=== PATIENT | male | born 1955 | race Caucasian/White ===

== ENCOUNTER 2023-04-22 07:28 | Outpatient (CLI) | payer MEDICARE, SELFPAY | END 2023-04-22 07:29 | disposition home or self-care (01) | LOC: NFLDREF 11:33 | PROVIDERS: PCP Family Medicine; Referring Provider Family Medicine; Visit Provider Family Medicine | DX: Z00.00 Encounter for general adult medical examination without abnormal findings (principal); R73.01 Impaired fasting glucose; Z12.5 Encounter for screening for malignant neoplasm of prostate; Z13.6 Encounter for screening for cardiovascular disorders | CPT/HCPCS: 80053; 80061; 83036; 84153 ==

== ENCOUNTER 2023-05-08 07:00 | Outpatient (CLI) | payer MEDICARE, SELFPAY ==
--- NOTE | 2023-05-08 07:15 | CRLHL7_ITS ---
For Patients: As a result of the Cures Act, medical imaging exams and procedure reports are released immediately into your electronic medical record. You may view this report before your referring provider. If you have questions, please contact your health care provider. Examination: US abdominal aorta Indication: Abdominal aortic aneurysm screening. Technique: Nogueira scale and color Doppler images of the aorta and common iliac arteries are obtained. Comparison: None Findings: Proximal aorta: 2.1 x 2.3 cm Mid aorta: 2.5 x 2.3 cm Distal aorta: 1.6 x 1.6 cm Right common iliac artery: 1.0 x 1.6 cm Left common iliac artery: 1.1 x 1.5 cm Impression: No abdominal aortic aneurysm. Dictated by Werner Pettit MD @ 05/08/2023 9:25:34 AM (Electronically Signed)
== END 2023-05-08 07:01 | disposition home or self-care (01) ==
PROVIDERS: PCP Family Medicine; Visit Provider Family Medicine
DX: Z13.6 Encounter for screening for cardiovascular disorders (principal)
CPT/HCPCS: 76706

== ENCOUNTER 2023-05-22 09:17 | Outpatient (RCR) | payer MEDICARE, SELFPAY ==
--- NOTE | 2023-05-22 11:13 | PT.OPEX ---
PT [place] Outpatient Eval PT [facility] Outpatient Eval Start: 05/22/23 07:34 Freq: Status: Active Protocol: Document 05/22/23 07:35 SUSAN (Rec: 05/22/23 11:11 KLV [id number]) E-signed By Zeina Mora PT Physical Therapy Outpatient Evaluation Insurance Information Recert Due Date 08/16/23 Insurance Name Medicare B Insurance Information/Comments Blue Medicare Medical Diagnosis Right knee pain Treating Diagnosis Right knee pain, limited knee ROM, impaired functional mobility (ie squatting) Referring MD James Subjective Subjective Prashanth reports to PT with primary complaint of right knee pain with gradual and insidious onset over the years . No known injury. Pain is relatively mild but mostly notices the pain when getting up and down from the ground to play with his grandchildren. Would like to prevent pain from getting worse. Pain is localized to medial aspect of knee without radiculopathy. He has tried some heat but no ice. 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 PMH: arthritis Pain Comments 11/02 worst Date of Last Physician Visit 04/24/23 Current Work Status Retired Objective Other/Pertinent Objective LE ROM (R/L): -Hip ER: 35/40 -Hip IR: 8/5 -Hip Abd: WNL -Knee Flx: 125 B however end range medial knee pain R>L -Knee Ext: WNL -Hamstring 90/90: 35 deg short of full extension DL squatting: medial R knee pain past 60 deg LE Strength (R/L): -Knee Ext: R: 4+/5 medial knee pain, L: 5/5 -Knee Flex: R: 5/5, L: 5/5 -Hip Abd: R: 5/5, L: 5/5 -Hip Add: R: 5/5, L: 5/5 -Hip Ext: R: 5/5, L: 5/5 -Hip Flx: R: 5/5, L: 5/5 Gait: WNL SL balance: good, WNL Carmencita: + medial knee pain R Thessaly: mild positive R All ligament testing: - Functional Test Performed & Score LEFS: 54/80 Assessment Assessment/Impression Patient is a 68 year old male presenting to physical therapy for evaluation and treatment of right knee pain. Patient presents with Right knee pain, limited knee ROM (end range flexion, HS and hip ER), impaired functional mobility ( ie squatting) consistent with pes anserine tendonitis with possible differential diagnosis of mild meniscus tear. These impairments are limiting the patients ability to squat, bend, kneel down on ground to play with grandkids. Patient appears motivated to participate in PT and presents with good prognosis to improve mobility, strength, proprioception and return to functional activities with skilled physical therapy intervention. Primary Functional Limitations squat, bend, kneel down on ground to play with grandkids Plan of Care Rehabilitation Potential Good Physical Therapy Goals In 4 weeks (06/19/23) Pt will demonstrate WNL knee and hip ROM with 0/10 medial knee pain In 10 weeks (07/31/23) Patient will squat with pain levels < 1/10 displaying good control in order to participate in recreational activities including playing with grandkids Pt will exhibit 9 pt improvement in LEFS Outcome measure to demonstrate functional improvement and progress towards goals. Pt will exhibit 5/5 LE strength in order to return to all functional activities Treatment Plan/Direct Interventions Gait Training,Ice/Cold/ Vasopneumatic,Joint Mobilization,Manual Therapy, Neuromuscular Re-ed,Self-Care/ Home Management,Therapeutic Activities,Therapeutic Exercises Frequency/Duration 1x/wk for 4 weeks with additional 4 sessions prn based on progress Patient Will Be Discharged From Therapy Completion of LTG(s), Independent w/HEP, Independently Progressing Evaluation Billing Untimed Code Treatment Minutes 18 Complexity Low Certification Information Initial Certification Date 05/22/23 Ending Certification Date 08/16/23 Provider Signature Shows Agreement With POC & Medical Necessity Physician Signature & Date Requested Please Sign/Date Here Physician Comment/Change : Physician NPI Number #
== END 2023-08-23 15:56 | disposition home or self-care (01) ==
PROVIDERS: PCP Family Medicine; Visit Provider Family Medicine
DX: M25.561 Pain in right knee (principal); Z74.09 Other reduced mobility; Z51.89 Encounter for other specified aftercare
CPT/HCPCS: 97110; 97161

== ENCOUNTER 2023-11-15 09:08 | Outpatient (CLI) | payer MEDICARE, SELFPAY | END 2023-11-15 09:09 | disposition home or self-care (01) | LOC: NFLDREF 09:09 | PROVIDERS: PCP Family Medicine; Visit Provider Family Medicine | DX: K52.9 Noninfective gastroenteritis and colitis, unspecified (principal) | CPT/HCPCS: 86258; 86364 ==

== ENCOUNTER 2023-11-19 09:55 | Outpatient (CLI) | payer MEDICARE, SELFPAY | END 2023-11-19 09:56 | disposition home or self-care (01) | LOC: NFLDREF 12-04 16:25 | PROVIDERS: PCP Family Medicine; Referring Provider Family Medicine; Visit Provider Family Medicine | DX: K52.9 Noninfective gastroenteritis and colitis, unspecified (principal) | CPT/HCPCS: 87177; 87209 ==

== ENCOUNTER 2024-04-20 19:40 | Emergency (ER) | payer MEDICARE, SELFPAY ==
[2024-04-20 19:50] VITALS: BP 124/78; PULSE 90; RESP 16; TEMP 37; O2SAT 98; BMI 29.2
[2024-04-20] MEDS: LACTATED RINGERS 1000 ML 1,000 ML IV (20:23)
[2024-04-20] MEDS: diphenhydrAMINE 50 MG/ML inj 25 MG IVP (20:25)
--- OUTSIDE RECORDS SUMMARY | 2024-04-20 20:26 | XMS_ITS | Continuity of Care Document ---
Author Organization [facility] Address [address] [address] [place] [address] Phone Care Team Providers Care Bakelite Molder Name Role Phone Ezra ROSARIO, Humberto Unavailable Unavailable Allergies, Adverse Reactions, Alerts Substance Reaction Status Criticality PENICILLIN Rash Active No Information Sulfa (Sulfonamide Antibiotics) Rash Active No Information KETOROLAC TROMETHAMINE Rash Active No In formation gatifloxacin Rash Active No Information DEXTROSE 5 % IN WATER Rash Active No Inf ormation sulfabenzamide Rash Active No Informatio n Penicillins Rash Active No Information Medications Medication Instructions Dosage Effective Dates (start - stop) Status Comments Zyrtec 10 mg capsule apply 1 Tablet by Oral route every day as needed 1 Tablet - Active simethicone 125 mg capsule take 1 by Oral route every day when needed as needed 1 - Active cetirizine 10 mg tablet take 1 tablet by oral route every day as needed 10 MG - No Longer Active pantoprazole 20 mg tablet,delayed release take 1 tablet daily on empty stomach in the morning, 30-60 minutes before your first meal. You should eat something 30-60 minutes after the medicine. - No Longer Active Procedures Procedure Date Offic/outpt E&m Estab Mod-hi 2 24 Offic/outpt E&m Estab Mod-hi 2 Breath Test Fructose Interpretation Breath Test Interpretation Breath Test Established Level 4 Colonoscopy Flex; W/remov Les- 21 Level Iv-surg Path Gross/micro 21 Colonoscopy Flex; W/remov Les- 16 Level Iv-surg Path Gross/micro 16 Colonoscopy Flex; W/remov Advance Directives Directive Yes / No Effective Date File Name No Information Encounters Encounter Description Practice Location Reason(s) For Visit Diagnoses Date Provider Providers Copied on Encounter Offic/outpt E&m Estab Mod-hi 2 [facility], [address] [address], [place], [id number], [place] tel:[phone] [facility] GI Symptoms or Concerns (chief complaint) Abdominal distension (gaseous)Belching 4 Ezra Paul. [address] [facility], [facility] [place], [id number] , [place]. [phone] Referring Provider: Referral Self, USE FOR SELF REFERRALS. Offic/outpt E&m [facility] Mod-hi 2 [facility], [address] [address], [place], [id number], [place] tel:[phone] [facility] GI Symptoms or Concerns (chief complaint) Chronic diarrheaFlatulenceB elchingFunctional dyspepsia 4 Ezra Harkinsi. [address] [facility], [facility] [place], [id number] , [place]. [phone] Referring Provider: Referral Self, USE FOR SELF REFERRALS. [facility], [address] [address], [place], [id number], [place] tel:[phone] [facility] Abdominal distension (gaseous) 4 Usha Brooks. [address] [facility], [facility] [place], [id number] , [place]. tel:[phone] Referring Provider: Violet James MD, [address] [place], [address]. tel:[phone] [facility], [address] [address], [place], [id number], [place] tel:[phone] [facility] Abdominal distension (gaseous) 4 Mendel Thornton. [address] [facility], [place], [place], [id number] , [place]. tel:[phone] Referring Provider: Violet James MD, [address] [place], [address]. tel:[phone] [facility], [address] [address], [place], [id number], [place] tel:[phone] [facility] Abdominal distension (gaseous) 4 Mendel Thornton. [address] [facility], [facility] [address], [place], [place], [id number] , [place]. tel:[phone] Referring Provider: Violet James MD, [address] [place], [address]. tel:[phone] Established Level 4 [facility], [address] [address], [place], [address], [place] tel:[phone] [facility] GI Symptoms or Concerns (chief complaint) Chronic diarrheaAbdominal bloatingBelchingFla [facility] 4 Ezra Paul. [address] [facility], [place], [place], [id number] , [place]. tel:[phone] Referring Provider: Referral Self, USE FOR SELF REFERRALS. [facility], [address] [address], [place], [id number], [place] tel:[phone] [facility] No Information 4 Shahram Jones. [address] [facility], [place], [place], [id number] , [place]. tel:[phone] [facility], [address] [address], [place], [id number], [place] tel:[phone] [facility] History of colon polypsPolyp of sigmoid colon, unspecified typeColon, diverticulosisHemor rhoids, unspecified hemorrhoid typeEncounter for screening for malignant neoplasm of colonEncounter for screening for malignant neoplasm of colonDvrtclos of lg int w/o perforation or abscess w/o bleedingPolyp of colonPersonal history of colonic polyps 1 Judy Cardoso. [address] [facility], [facility] [address], [place], [place], [id number] , [place]. tel:[phone] Referring Provider: Referral Self, USE FOR SELF REFERRALS. [facility], [address] [address], [place], [place], [id number], [place] tel:[phone] [facility] Colon polypEncounter for screening for malignant neoplasm of colonBenign neoplasm of ascending colon 6 Lidia Gutiérrez. [address] [facility], [facility] [address], [place], [id number] , [place]. [phone] Referring Provider: Referral Self, USE FOR SELF REFERRALS. [facility], [address] [address], [place], [place], [id number], [place] tel:[phone] [facility] Diarrhea 200 6 Michelle Pratt. [address] [facility], [facility] [address], [place], [address] , [place]. [phone] Referring Provider: Gamaliel Ceron MD [place], [address] [place], [address]. tel:[phone] Family History Family Member Type Diagnosis Age At Onset Son Problem (finding) Alive and well Brother Problem (finding) Alive and well Mother Problem (finding) 76 Father Problem (finding) 73 Daughter Problem (finding) Alive and well Immunizations Vaccine Date Status Comments influenza, seasonal vaccine, quadrivalent, adjuvanted, 0.5mL dose, preservative free administered Note: [facility] bi-di rectional interface ; Source: Other Registry influenza, high-dose seasona l, quadrivalent, 0.7mL dose, preservative free administered Note: [facility] bi-direct ional interface ; Source: Other Registry SARS-COV-2 (COVID-19) vaccin e, mRNA, spike protein, LNP, preservative free, 30 mcg/0.3mL dose administered Note: [facility] bi-direct ional interface ; Source: Other Registry SARS-COV-2 (COVID-19) vaccin e, mRNA, spike protein, LNP, preservative free, 30 mcg/0.3mL dose administered Note: [facility] bi-direct ional interface ; Source: Other Registry Influenza, injectable, Madin Dominique Canine Kidney, preservative free, quadrivalent administered Note: [facility] bi-direct ional interface ; Source: Other Registry zoster vaccine recombinant administered N ote: [facility] bi-directional interface ; Source: Other Registry tetanus toxoid, reduced diphtheria toxoid, and acellular pertussis vaccine, adsorbed administered Note: [facility] b i-directional interface ; Source: Other Registry Influenza administered Note: [facility] bi-d irectional interface ; Source: Other Registry zoster vaccine recombinant administered N ote: [facility] bi-directional interface ; Source: Other Registry Prevnar 13 administered Note: [facility] bi-d irectional interface ; Source: Other Registry Influenza administered Note: [facility] bi-d irectional interface ; Source: Other Registry Pneumovax 23 administered Note: [facility] bi-d irectional interface ; Source: Other Registry Influenza administered Note: [facility] bi-d irectional interface ; Source: Other Registry Influenza administered Note: [facility] bi-d irectional interface ; Source: Other Registry Afluria Qd administered Note: [facility] bi-directional interface ; Source: Other Registry Afluria Qd administered Note: [facility] bi-directional interface ; Source: Other Registry Influenza, seasonal, injectable administe red Note: [facility] bi- directional interface ; Source: Other Registry Havrix administered Note: [facility] bi-d irectional interface ; Source: Other Registry typhoid Vi capsular polysaccharide vaccine administered Note: [facility] bi-dir ectional interface ; Source: Other Registry Havrix administered Note: [facility] bi-d irectional interface ; Source: Other Registry Influenza, seasonal, injectable administe red Note: [facility] bi- directional interface ; Source: Other Registry Influenza, seasonal, injectable administe red Note: [facility] bi- directional interface ; Source: Other Registry Influenza, seasonal, injectable administe red Note: [facility] bi- directional interface ; Source: Other Registry Influenza, seasonal, injecta ble, preservative free administered Note: [facility] bi-direct ional interface ; Source: Other Registry tetanus toxoid, reduced diphtheria toxoid, and acellular pertussis vaccine, adsorbed administered Note: [facility] b i-directional interface ; Source: Other Registry tetanus and diphtheria toxoi ds, adsorbed, preservative free, for adult use (2 Lf of tetanus toxoid and 2 Lf of diphtheria toxoid) administered Note: [facility] C bi- directional interface ; Source: Other Registry Payers Payer name Insurance type Covered democrat ID Authoredgara tijacquelin(s) Blue Cross Medicare Advantage [id number] Social History Type Description Quantity Date Captured Comments Alcohol Use Details Caffeine Use Details Unknown Tobacco Use Status Current non-smoker Smoking Status undefined Sex Male Vital Signs Date / Time: Height Weight BMI Pulse Rate Blood Pressure Temperature Respiratory Rate Body Surface Area Head Circumference Head Circ. Percentile Wt./William. Percentile BMI percentile Pulse Ox Inhaled Ox 2:15 PM 69.00 in 90.265 kg (199.00 lbs) 29.3 8 kg/m eter (2) 61 /min 114/73 mm[Hg] Chief Complaint And Reason For Visit From encounter dated '04/08/2024 13:00'. GI Symptoms or Concerns (chief complaint). Description: A 68-year-old male patient who presents fora followup. He was seen last in the clinic on January 08, 2024 for abdominal bloating, belching, and also new-onset epigastric abdominal pain. He did have the former symptoms for 6 to 12 months before his initial presentation. Prior workup included colonoscopy back in 2020 for screening that showed diverticulosis only. We referred him prior to the last visit for hydrogen breath testing and his SIBOtest came back negative, lactose breath test came back negative. Fructose breath test came back as nonconclusive. H. pylori test was done after the last visit was negative. We started him on Flagyl for presumed SIBO despite negative testing and we suggested to him that if symptoms persist to attempt a low-FODMAP diet. Today, he presents for a followup.The patient reports that he continues to havethe same symptoms, less severe than before. About 2 days after 4 weeks, he will notice some bloating and excessive belching. Whenever he is able to release the gas, he will feel better. He was not able to correlate anything specific that triggers the symptoms. He did not keep any food diary to try to correlate. After the last visit, he tried PPI for 2 weeks for epigastric pain and the pain has resolved. No abdominal pain at this time. He tried the Flagyl for 10 days as prescribed with no benefits as well. We advised to reach out to us to consider low-FODMAP diet if symptoms persist, however, the patient missed that part. He reports that his appetite is normal, no unintentional weight changes, and he is doing well otherwise. He does admit to drinking 2-3 regular sodas every day. Reason For Referral Reason For Referral No Information History Of Present Illness Encounter Date Complaint History Of Prese nt Illness GI Symptoms or Concerns A 68-yea r-old male patient who presents for a followup. He was seen last in the clinic on January 08, 2024 for abdominal bloating, belching, and also new-onset epigastric abdominal pain. He did have the former symptoms for 6 to 12 months before his initial presentation. Prior workup included colonoscopy back in 2020 for screening that showed diverticulosis only. We referred him prior to the last visit for hydrogen breath testing and his SIBO test came back negative, lactose breath test came back negative. Fructose breath test came back as nonconclusive. H. pylori test was done after the last visit was negative. We started him on Flagyl for presumed SIBO despite negative testing and we suggested to him that if symptoms persist to attempt a low-FODMAP diet. Today, he presents for a followup.The patient reports that he continues to have the same symptoms, less severe than before. About 2 days after 4 weeks, he will notice some bloating and excessive belching. Whenever he is ab GI Symptoms or Concerns 68-year- old male patient who presents for follow-up of bloating, belching, flatulence, diarrhea and urgency. We evaluated the patient initially in October 2023 for 6-12 months history of these symptoms. More recently he noted some epigastric abdominal discomfort. We suggested celiac serology testing and stool testing for ova and parasite during the last visit. He reports that this was done by his PCP and he was not told that he had any positive testing. We do not have these results. He continues to have the bloating, belching, and diarrhea and urgency. No fevers, chills or night sweats. Appetite is normal without unintentional weight changes. He has not on PPI. He was on it in the past when he was on mycophenolate. Last colonoscopy in 2020 showed diverticulosis. No biopsies obtained at that time. Hydrogen breath testing for SIBO and lactose were negative. Hydrogen testing for fructose was inconclusive. He did not notice any symptoms during these tests. Past medical history: Britney 1 antibody. Anti synthetase syndrome. Diverticulosis. Past surgical history: Hernia surgery. Family history: No IBD, celiac or colorectal cancer. Father with thyroid disease. Social history: Minimal alcohol use. No smoking or recreational drug use. GI Symptoms or Concerns This is a virtual clinic visit which the patient consented for and confirmed that he is in a private place. He reports that he was in his usual state of health until 6-12 months ago when he started to having soft stools, and watery sometimes, 2-3 bowel movements a day, with urgency, associated with excessive bloating, belching, and flatulence. No specific trigger for these symptoms. He did not start any new medication over the past year. In fact he was diagnosed with Anti-synthetase syndrome and was previously on mycophenolate mofetil which was stopped more than a year ago. No NSAIDs use. he reports that the bowel movements are mostly in the morning over a period of 2 hours but the bloating and other symptoms are throughout the day, and it happens at night as well. No nocturnal symptoms. No fevers, chills or night sweats. No unintentional weight changes. His father did have history of thyroid cancer, but this has always been followed with him and his thyroid has been normal. He does report drinking 2-3 regular sodas every day which he has been trying to cut off. His last colonoscopy was in 2020 which showed diverticulosis. He was not checked for celiac disease in the past.Past medical history:Britney 1 antibody. Anti-synthetase syndrome.Diverticulosis. Past surgical history:Hernia. Family history:No IBD, celiac, no colorectal cancer. Father with thyroid. Social history:Minimal alcohol. No smoking or recreational drug use. Functional Status Date Functional Assessmen t No Information Instructions Date Instruction Additional Infor randolph 1. Low-FODMAP diet f or 3 weeks. If beneficial, then start the reintroduction phase. If no benefit, then stop and contact us and we will refer you for an upper endoscopy and a flexible sigmoidoscopy and a CT enterography.2. Follow up as needed. Related to Abdominal distension (gaseous) We will perform dayan th testing for H pylori today. Pantoprazole course for 2 weeks given his upper abdominal discomfort that started couple days ago. Empiric antibiotic with Flagyl for presumed SIBO. Update us in 1 month and neck supple B trial of low FODMAP diet for 3 weeks. Following steps to include upper endoscopy, flexible sigmoidoscopy with biopsies, and CT enterography. If tests remain a railing, we will treat for IBS D with tricyclic antidepressant. Follow-up in 3 months. Related to Chronic diarrhea Suggested to have bl ood tests for celiac disease and stool test for ova and parasite by PCP as he is visiting his PCP next week. Referral for hydrogen breath testing for lactose intolerance, fructose intolerance, and for SIBO. We will consider treating for presumed IBS D /SIBO, pending test results. We will also consider low FODMAP diet. Suggested to try IBGuard. Follow-up in 2 months. Related to Abdominal bloating Hemorrhoids Related to Histo ry of colon polyps Colon Cancer Prevention Related to Colon, diverticulosis High Fiber Diet Related to Colon , diverticulosis Diverticulosis/Diverticulitis Re lated to History of colon polyps Colon Polyps Related to Histo ry of colon polyps Colon Cancer Prevention Related to Colon polyp Rob-27-2016 Colon Polyps Related to Colon polyp Hemorrhoids Related to Colon polyp High Fiber Diet Related to Colon polyp Assessments Type Assessment Date assessment Abdominal distension (gaseous) J assessment Belching impression A 68-year-old male p atient with:1. Intermittent bloating and belching.2. Epigastric abdominal pain - resolved.3. History of diverticulosis.Symptoms are likely related to dietary component. Excess of fructose exposure is a possibility with drinking more than average regular sodas every day. We discussed with the patient attempting a low-FODMAP diet and if no benefit then we can consider abdominal imaging with CT enterography, upper endoscopy and a flexible sigmoidoscopy, however, there are no alarm features and with his absence of symptoms for most of the days, this suggests against organic pathology. Patient Care Teams Name Effective Dates (start - stop) Status Members No Information
--- OUTSIDE RECORDS SUMMARY | 2024-04-20 20:26 | XMS_ITS | Encounter Summary ---
Author Organization [employer] Address [address] [place] [address] Care Team Providers Care Municipal Maintenance Worker Name Role Phone Tony Jones MD Primary Care Provider [phone] Encounter Details Date Type Department Care Team (Latest Contact Info) Description 02/15/2000 [place] [address] [place] [address] Social History Tobacco Use Types Packs/Day Years Used Date Smoking Tobacco: Never Assessed Sex and Gender Information Value Date Recorded Sex Assigned at Not on file Gender Identity Not on file Sexual Orientation Not on file documented as of this encounter Plan of Treatment Not on file documented as of this encounter Visit Diagnoses Not on filedocumented in this encounter Care Teams Municipal Maintenance Worker Relationship Specialty [place] [address] [place] [address] PCP - General 06/14/1998 documented as of this encounter
--- OUTSIDE RECORDS SUMMARY | 2024-04-20 20:26 | XMS_ITS | Encounter Summary ---
Author Organization [employer] Address [address] [place] [address] Care Team Providers Care Program Review Director Name Role Phone Tony Jones MD Primary Care Provider [phone] Encounter Details Date Type Department Care Team (Latest Contact Info) Description 11/30/1999 Orders Only Srinivasa Knott MD [address] [place] [address] Social History Tobacco Use Types Packs/Day Years Used Date Smoking Tobacco: Never Assessed Sex and Gender Information Value Date Recorded Sex Assigned at Not on file Gender Identity Not on file Sexual Orientation Not on file documented as of this encounter Plan of Treatment Not on file documented as of this encounter Visit Diagnoses Not on filedocumented in this encounter Care Teams Program Review Director Relationship Specialty [place] [address] [place] [address] PCP - General 06/14/1998 documented as of this encounter
--- OUTSIDE RECORDS SUMMARY | 2024-04-20 20:26 | XMS_ITS | Encounter Summary ---
Author Organization [facility] Address [address] [place] [address] Care Team Providers Care Solar Energy Consultant And Designer Name Role Phone Tony Jones MD Primary Care Provider [phone] Encounter Details Date Type Department Care Team (Latest Contact Info) Description 01/02/2000 Orders Only Srinivasa Knott MD [address] [place] [id number] Social History Tobacco Use Types Packs/Day Years Used Date Smoking Tobacco: Never Assessed Sex and Gender Information Value Date Recorded Sex Assigned at Not on file Gender Identity Not on file Sexual Orientation Not on file documented as of this encounter Plan of Treatment Not on file documented as of this encounter Visit Diagnoses Not on filedocumented in this encounter Care Teams Solar Energy Consultant And Designer Relationship Specialty [place] [address] [place] [address] PCP - General 06/14/1998 documented as of this encounter
--- OUTSIDE RECORDS SUMMARY | 2024-04-20 20:26 | XMS_ITS | Encounter Summary ---
Author Organization [facility] Address [address] [place] [address] Care Team Providers Care Starch Cooker Name Role Phone Tony Jones MD Primary Care Provider [phone] Encounter Details Date Type Department Care Team (Latest Contact Info) Description 07/17/1999 Orders Only Srinivasa Knott MD [address] [place] [address] Social History Tobacco Use Types Packs/Day Years Used Date Smoking Tobacco: Never Assessed Sex and Gender Information Value Date Recorded Sex Assigned at Not on file Gender Identity Not on file Sexual Orientation Not on file documented as of this encounter Plan of Treatment Not on file documented as of this encounter Visit Diagnoses Not on filedocumented in this encounter Care Teams Starch Cooker Relationship Specialty [place] [address] [place] [address] PCP - General 06/14/1998 documented as of this encounter
--- OUTSIDE RECORDS SUMMARY | 2024-04-20 20:26 | XMS_ITS | Encounter Summary ---
Author Organization [employer] Address [address] [place] [address] Care Team Providers Care Imagery Analyst Name Role Phone Tony Jones MD Primary Care Provider [phone] Encounter Details Date Type Department Care Team (Latest Contact Info) Description 09/08/1998 Orders Only Génesis Dyson Social History Tobacco Use Types Packs/Day Years Used Date Smoking Tobacco: Never Assessed Sex and Gender Information Value Date Recorded Sex Assigned at Not on file Gender Identity Not on file Sexual Orientation Not on file documented as of this encounter Plan of Treatment Not on file documented as of this encounter Visit Diagnoses Not on filedocumented in this encounter Care Teams Imagery Analyst Relationship Specialty [place] [address] [place] [address] PCP - General 06/14/1998 documented as of this encounter
--- OUTSIDE RECORDS SUMMARY | 2024-04-20 20:26 | XMS_ITS | Encounter Summary ---
Author Organization [employer] Address [address] [place] [address] Care Team Providers Care Parimutuel Ticket Checker Name Role Phone Tony Jones MD Primary Care Provider [phone] Encounter Details Date Type Department Care Team (Latest Contact Info) Description 12/08/1999 Orders Only Srinivasa Knott MD [address] [place] [address] Social History Tobacco Use Types Packs/Day Years Used Date Smoking Tobacco: Never Assessed Sex and Gender Information Value Date Recorded Sex Assigned at Not on file Gender Identity Not on file Sexual Orientation Not on file documented as of this encounter Plan of Treatment Not on file documented as of this encounter Visit Diagnoses Not on filedocumented in this encounter Care Teams Parimutuel Ticket Checker Relationship Specialty [place] [address] [place] [address] PCP - General 06/14/1998 documented as of this encounter
--- OUTSIDE RECORDS SUMMARY | 2024-04-20 20:26 | XMS_ITS | Clinical Summary ---
Author Organization [employer] Address [address] [place] [address] Care Team Providers Care Pbx Inspector Name Role Phone Tony Jones MD Primary Care Provider [phone] Source Comments You are receiving this document as you are listed as the primary care provider,follow-up provider, or the patient has been referred to you for consultation.This is in compliance with the Medicare and[facility] EHR Incentive Program,which states Providers who transition their patient to another setting of careor provider of care or refers their patient to another provider of care shouldprovide summary care record for each transition of care or referral. [employer] Allergies Active Allergy Reactions Criticality Noted Date Comments Ketorolac Tromethamine Hives 2012 Penicillin And Derivatives Sulfa Antibiotics Rash 2012 Gatifloxacin Sesquihydrate Hives 2 Medications Medication Sig Dispensed Refills Start Date End Date Status cetirizine (ZYRTEC ALLERGY) 10 MG tablet Take 10 mg by mouth daily. Active Multiple Vitamins-Minerals (MULTIVITAMIN OR) Take 1 tablet a day Active zolpidem (AKA AMBIEN) 5 MG tablet Take 1-2 Tabs by mouth at bedtime as needed for Sleep. 8 Tab 0 09/30/2014 Active Additional Information Patient not taking.Reported on 07/05/2017 Active Problems Problem Noted Date Diagnosed Date Allergic rhinitis 09/30/2014 Thyroid nodule 09/30/2014 Overview: Neg. FNA 2010 ; Thyroid nodule, right Overweight 09/30/2014 Immunizations Name Administration Dates Next Due HepA, Unspecified Formulation 03/12/2013, 012 HepB Adult (Engerix-B, 20+ y rs, 3 dose series) 05/22/2000,12/11/1999,11/08/1999 Influenza, Unspecified Formulation 06/30/2014,,07/26/2011 Td 06/02/1992 Tdap 02/16/2009 Typhoid (Vivotif, Oral) 08/18/2012 Family History Medical History Relation Name Comments Cancer, Other Father Thyroid Ca Dementia Mother Relation Name Status Comments Father (Age 73) Mother (Age 76) Brother 1 Alive Brother 2 Alive Brother 3 Alive Daughter 1 Alive Daughter 2 Alive Son Alive Social History Tobacco Use Types Packs/Day Years Used Date Smoking Tobacco: Former Cigarettes 1 5 Smokeless Tobacco: Never Alcohol Use Standard Drinks/Week Comments Yes 0 (1 standard drink = 0.6 oz pur e alcohol) rare Sex and Gender Information Value Date Recorded Sex Assigned at Not on file Gender Identity Not on file Sexual Orientation Not on file Last Filed Vital Signs Vital Sign Reading Time Taken Comments Blood Pressure 108/58 01/01/2018 8:43 AM CDT Pulse 57 01/01/2018 8:43 AM CDT Temperature 36.2 ??C (97.2 ??F) 09/30/2014 2:49 PM CS T Respiratory Rate 12 09/30/2014 2:49 PM OUTREACH COUNSELOR Oxygen Saturation - - Inhaled Oxygen Concentration - - Weight 87.3 kg (192 lb 8 oz) 09/30/2014 2:49 PM OUTREACH COUNSELOR Height 175.3 cm (5' 9) 09/30/2014 2:49 PM OUTREACH COUNSELOR Body Mass Index 28.43 09/30/2014 2:49 PM OUTREACH COUNSELOR Plan of Treatment Health Maintenance Due Date Last Done Comments PSA Screening Discussion 1955 Adult Preventive Visit 09/30/2015 09/30/2014, 1999 Colonoscopy 12/19/2015 12/18/2005 Cholesterol 03/11/2018 03/11/2013 (Comp leted), 07/23/2000 COVID-19 Vaccine (2 - season) 2023 04/28/2021 Pneumococcal 65+ Yrs (3 - PPSV23 or PCV20) 01/14/2024 01/13/2019, 01/08/2018 Influenza (#1) 2024 06/28/2020, 10/0 05/2019, 07/02/2018, Additional history exists DTaP/Tdap/Td (3 - Tdap) 08/06/2029 08/06/20 19, 02/16/2009, 04/30/2003, Additional history exists HepB Completed 05/22/2000, 11/22, 11/08/1999 HepA Aged Out 03/12/2013, 08/18/2012 No lo nger eligible based on patient's age to complete this topic Hep C Screening (Preventive Services) Completed 01/16/2016 Zoster/Shingles Completed 08/17/2019, 05/21/2019 Hib Aged Out No longer eligi ble based on patient's age to complete this topic IPV (Polio) Aged Out No longer eligi ble based on patient's age to complete this topic MCV4 Aged Out No longer eligi ble based on patient's age to complete this topic Procedures Procedure Name Priority Date/Time Associated Diagnosis Comments CHOLESTEROL, TOTAL AND HDL Routine 07/23/2000 10:32 AM OUTREACH COUNSELOR from Last 3 Months or Most Recently Relevant to Health Maintenance Results * CHOLESTEROL, TOTAL AND HDL (07/23/2000 10:32 AM OUTREACH COUNSELOR) Cholesterol 171 <200 mg/dl [facility] HDL 38 >35 mg/[facility] 07/23/2000 10:3 2 AM OUTREACH COUNSELOR 07/23/2000 10:33 AM OUTREACH COUNSELOR Tony Jones MD [email or web address] [address] [address] from Last 3 Months or Most Recently Relevant to Health Maintenance Care Teams Pbx Inspector Relationship Specialty [place] [address] [place] [address] PCP - General 06/14/1998
--- OUTSIDE RECORDS SUMMARY | 2024-04-20 20:26 | XMS_ITS | Encounter Summary ---
Author Organization [employer] Address [address] [place] [address] Care Team Providers Care Distance Learning Administrator Name Role Phone Tony Jones MD Primary Care Provider [phone] Encounter Details Date Type Department Care Team (Latest Contact Info) Description 06/01/1999 Orders Only Rosa Elena Marley Social History Tobacco Use Types Packs/Day Years Used Date Smoking Tobacco: Never Assessed Sex and Gender Information Value Date Recorded Sex Assigned at Not on file Gender Identity Not on file Sexual Orientation Not on file documented as of this encounter Plan of Treatment Not on file documented as of this encounter Visit Diagnoses Not on filedocumented in this encounter Care Teams Distance Learning Administrator Relationship Specialty [place] [address] [place] [address] PCP - General 06/14/1998 documented as of this encounter
[2024-04-20] MEDS: METOCLOPRAMIDE HCL 5 MG/ML INJ 10 MG IVP (20:27)
--- OUTSIDE RECORDS SUMMARY | 2024-04-20 20:27 | XMS_ITS | Encounter Summary ---
Author Organization [employer] [facility] Address [address] [place] [address] Care Team Providers Care Pastoral Worker Name Role Phone Tony Jones MD Primary Care Provider [phone] Encounter Details Date Type Department Care Team (Latest Contact Info) Description 09/15/1997 Orders Only Srinivasa Knott MD [address] [place] [address] Social History Tobacco Use Types Packs/Day Years Used Date Smoking Tobacco: Never Assessed Sex and Gender Information Value Date Recorded Sex Assigned at Not on file Gender Identity Not on file Sexual Orientation Not on file documented as of this encounter Plan of Treatment Not on file documented as of this encounter Visit Diagnoses Not on filedocumented in this encounter Care Teams Pastoral Worker Relationship Specialty [place] [address] [place] [address] PCP - General 06/14/1998 documented as of this encounter
--- OUTSIDE RECORDS SUMMARY | 2024-04-20 20:27 | XMS_ITS | Encounter Summary ---
Author Organization [employer] Address [address] [place] [address] Care Team Providers Care Supervisor Ornamental Ironworking Name Role Phone Tony Jones MD Primary Care Provider [phone] Encounter Details Date Type Department Care Team (Latest Contact Info) Description 07/14/1998 Orders Only Srinivasa Knott MD [address] [place] [address] Social History Tobacco Use Types Packs/Day Years Used Date Smoking Tobacco: Never Assessed Sex and Gender Information Value Date Recorded Sex Assigned at Not on file Gender Identity Not on file Sexual Orientation Not on file documented as of this encounter Plan of Treatment Not on file documented as of this encounter Visit Diagnoses Not on filedocumented in this encounter Care Teams Supervisor Ornamental Ironworking Relationship Specialty [place] [address] [place] [address] PCP - General 06/14/1998 documented as of this encounter
--- OUTSIDE RECORDS SUMMARY | 2024-04-20 20:27 | XMS_ITS | Encounter Summary ---
Author Organization [facility] Address [address] [place] [address] Care Team Providers Care Parcel Wrapper Name Role Phone Elsewhere, Pcp Primary Care Provider Unavailabl e Encounter Details Date Type Department Care Team (Latest Contact Info) Description 10/21/2018 [facility] [address] [place] [address] Chemo Jarvis M.D. [address] , [facility] [address] [place] [address] Lung Interstitial Disease (HCC) (Primary Dx) Social History Tobacco Use Types Packs/Day Years Used Date Smoking Tobacco: Former Cigarettes 1 6 1 972 - 1977 Smokeless Tobacco: Never Alcohol Use Standard Drinks/Week Comments Yes 1 (1 standard drink = 0.6 oz pur e alcohol) Sex and Gender Information Value Date Recorded Sex Assigned at Male 02/24/2018 1:11 PM CDT Gender Identity Male 02/24/2018 1:11 PM CDT Sexual Orientation Straight 02/24/2018 1: 11 PM CDT documented as of this encounter Plan of Treatment Not on file documented as of this encounter Visit Diagnoses Diagnosis Lung Interstitial Disease (HCC)- Primary documented in this encounter Additional Health Concerns Infection Onset Date Last Indicated Resolved Time COVID19 Pending 05/16/2020 05/16/2020 05/16/2020 7 :20 PM CDT COVID19 Pending 03/21/2022 03/21/2022 03/21/2022 9 :36 PM CDT COVID19 Pending 06/28/2022 06/28/2022 06/28/2022 1 :56 PM CDT documented as of this encounter Care Teams Parcel Wrapper Relationship Specialty Start Date End Date Elsewhere, Pcp PCP - General Internal Medicine 03/21/22 documented as of this encounter
--- OUTSIDE RECORDS SUMMARY | 2024-04-20 20:27 | XMS_ITS | Encounter Summary ---
Author Organization [employer] Address [address] [place] [address] Care Team Providers Care Haulage Boss Name Role Phone Tony Jones MD Primary Care Provider [phone] Encounter Details Date Type Department Care Team (Latest Contact Info) Description 05/10/1998 Orders Only Cure, Vernon Arredondo MD [address] [place] [address] Social History Tobacco Use Types Packs/Day Years Used Date Smoking Tobacco: Never Assessed Sex and Gender Information Value Date Recorded Sex Assigned at Not on file Gender Identity Not on file Sexual Orientation Not on file documented as of this encounter Plan of Treatment Not on file documented as of this encounter Visit Diagnoses Not on filedocumented in this encounter Care Teams Haulage Boss Relationship Specialty [place] [address] [place] [address] PCP - General 06/14/1998 documented as of this encounter
--- OUTSIDE RECORDS SUMMARY | 2024-04-20 20:27 | XMS_ITS | Referral Summary ---
Author Organization [facility] Address [address] [place] [address] Care Team Providers Care Restorative Art Embalmer Name Role Phone Elsewhere, Pcp Primary Care Provider Unavailabl e Source Comments Patient records contain information from all sites at [facility]. For routine questions regarding patient records, call [phone] during business hours, M-F 8:00 AM - 5:00 PM Central Time. Record requests for emergency care only can be directed to [phone] at any time.[facility] Allergies Active Allergy Reactions Criticality Noted Date Comments Dextrose 5 % In Water Rash 12/18/2005 Ketorolac Hives (Reselect Reaction) 09/12/2017 Ketorolac Tromethamine Hives (Reselect Reaction) 2012 Penicillins Rash 09/12/2017 Sulfa (Sulfonamide Antibiotics) Rash 09/12/2017 Successful Bactrim desensitization 3.29.19 Gatifloxacin Rash 04/30/2003 Tromethamine Rash 09/12/2017 Medications Medication Sig Dispensed Refills Start Date End Date Status cetirizine (ZyrTEC) 10 mg tablet Take 1 tablet (10 mg total) by mouth daily. 30 tablet 11 08/25/2019 Active simethicone (MYLICON,GAS-X) 180 mg capsule Take 180 mg by mouth as needed for flatulence. 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 No muscle weakness noted. Lung Interstitial Disease 03/17/2018 Nodule Pulmonary 08/23/2017 Overview (07/30/2018): 4-5 mm posterior left upper lobe nodule, stable on CT Chest from 07/25/2018 Resolved Problems Problem Noted Date Diagnosed Date Resolved Date Pneumonia Cryptogenic Organizing 09/24/2017 07/30/2018 Immunizations Name Administration Dates Next Due Influenza high dose QV(65 years or older) (PF) 1 10/06/2021 Influenza, Injectable, Mdck, Preservative Free, Quadrivalent 06/28/2020 SARS-COV-2 (COVID-19) - PFIZ ER (Discontinued)(12 years or older) 04/28/2021 Social History Tobacco Use Types Packs/Day Years Used Date Smoking Tobacco: Former Cigarettes 1 5.1 0 02/21/1973 - 1978 Smokeless Tobacco: Never Tobacco Cessation:Counseling Given: Not Answered Alcohol Use Standard Drinks/Week Comments Yes 2 (1 standard drink = 0.6 oz pur e alcohol) Humiliation, Afraid, Rape, and Kick questionnair e Answer Date Recorded Within the last year, have y ou been afraid of your partner or ex-partner? No 04/04/2023 Within the last year, have y ou been humiliated or emotionally abused in other ways by your partner or ex-partner? No Within the last year, have y ou been kicked, hit, slapped, or otherwise physically hurt by your partner or ex-partner? No 04/04/2023 Within the last year, have y ou been raped or forced to have any kind of sexual activity by your partner or ex-partner? No 04/04/2023 Social Connection and Isolat ion Panel [NHANES] Answer Date Recorded In a typical week, how many times do you talk on the phone with family, friends, or neighbors? Twice a week 03/20/2022 How often do you get togethe r with friends or relatives? Once a week 03/20/2022 How often do you attend [facility] or oriental orthodox services? More than 4 times per year 03/20/2022 Do you belong to any clubs o r organizations such as faith groups, unions, fraternal or athletic groups, or school groups? Yes 03/20/2022 How often do you attend meet ings of the clubs or organizations you belong to? More than 4 times per year 03/20/2022 Are you , , di vorced, , never , or living with a partner? 03/20/2022 AUDIT-C Answer Date Recorded Q1: How often do you have a drink containing alc ohol? Monthly or less 03/20/2022 Q2: How many drinks containi ng alcohol do you have on a typical day when you are drinking? 1 or 2 03/20/2022 Q3: How often do you have si x or more drinks on one occasion? Never 03/20/2022 Overall Financial Resource Strain (CARDIA) Answe r Date Recorded How hard is it for you to pa y for the very basics like food, housing, medical care, and heating? Not hard at all 04/04/2023 [facility] - Occupational Stress Questionnaire Answer Date Recorded Do you feel stress - tense, restless, nervous, or anxious, or unable to sleep at night because your mind is troubled all the time - these days? Not at all 03/20/2022 Exercise Vital Sign Answer Date Recorde d On average, how many days pe r week do you engage in moderate to strenuous exercise (like a brisk walk)? 3 days 04/04/2023 On average, how many minutes do you engage in exercise at this level? 30 min 04/04/2023 Hunger Vital Sign Answer Date Recorded Within the past 12 months, y ou worried that your food would run out before you got the money to buy more. Never true 04/04/20 23 Within the past 12 months, t he food you bought just didn't last and you didn't have money to get more. Never true 04/04/2023 PRAPARE - Transportation Answer Date Re corded In the past 12 months, has l ack of transportation kept you from medical appointments or from getting medications? No 03/23 In the past 12 months, has l ack of transportation kept you from meetings, work, or from getting things needed for daily living? No 04/04/2023 Nutrition Answer Date Recorded Nutrition: EVOO Fat Source No 04/04 On average, how many serving s of fruits and vegetables do you eat per day (serving size is equal to 1 cup or approximately the size of a tennis ball)? 0-2 04/04/2023 Dental Answer Date Recorded Dental: Regular Dentist Yes 04/04/20 Employment Answer Date Recorded Employment status Retired 04/04/2023 Housing Stability Answer Date Recorded What is your living situation today? I have a [facility] place to live 04/04/2023 Education Answer Date Recorded What is the highest level of school you have completed or the highest degree you have received? Associate degree: occupational, technical, or vocational program 06/03/2019 Sex and Gender Information Value Date Recorded Sex Assigned at Male 02/24/2018 1:11 PM CDT Gender Identity Male 02/24/2018 1:11 PM CDT Sexual Orientation Straight 02/24/2018 1: 11 PM CDT Last Filed Vital Signs Vital Sign Reading Time Taken Comments Blood Pressure 138/80 07/24/2023 12:28 PM CDT Pulse 65 07/24/2023 12:28 PM CDT Temperature 36 ??C (96.8 ??F) 07/24/2023 12:28 PM CDT Respiratory Rate 15 07/05/2022 11:45 AM CDT Oxygen Saturation 96% 07/24/2023 12:28 PM CDT Inhaled Oxygen Concentration - - Weight 90.4 kg (199 lb 4.7 oz) 07/24/2023 12:28 PM CDT Height 174.6 cm (5' 8.74) 07/24/2023 12:28 PM C DT Body Mass Index 29.65 07/24/2023 12:28 PM CDT Plan of Treatment Not on file Medical Devices Implanted Type Area Cook Restaurant Device Identifier Shelf Expiration Date Model / Serial / Lot Mesh Or Patch Mesh or Patch Abdomen Procedures Procedure Name Priority Date/Time Associated Diagnosis Comments COMPREHENSIVE METABOLIC PANEL, S/P Routine 06/27/2022 10:01 AM CDT Lung Interstitial Disease (HCC) Nodules Pulmonary Multiple from Last 3 Months or Most Recently Relevant to Health Maintenance Results * (ABNORMAL) Comprehensive Metabolic Panel (06/27/2022 10:01 AM CDT) Potassium, S 5.5(H) 3.6 - 5.2 mmol/L 06/27/2022 11:04 AM CDT DTL Sodium, S 144 135 - 145 mmol/L 06/27/2022 11:04 AM CDT DTL Chloride, S 108(H) 98 - 107 mmol/L 06/27/2022 11:04 AM CDT DTL Bicarbonate, S 28 22 - 29 mmol/L 06/27/2022 11:04 AM CDT DTL Anion Gap 8 7 - 15 06/27/2022 11:04 AM CDT DTL BUN (Blood Urea Nitrogen), S 18 8 - 24 mg/dL 06/27/2022 11:04 AM CDT DTL Creatinine 1.28 0.74 - 1.35 mg/dL 06/27/2022 11:04 AM CDT DTL Estimated GFR (eGFR) 62 >=60 mL/min/BS A 06/27/2022 11:04 AM CDT DTL Comment: Estimated GFR calculated using the 2020 CKD_EPI creatinine equation. Calcium, Total, S 9.4 8.8 - 10.2 mg/dL 06/27/2022 11:04 AM CDT DTL Glucose, S 104 70 - 140 mg/dL 06/27/2022 11:04 AM CDT DTL Protein, Total, S 6.8 6.3 - 7.9 g/dL 06/27/2022 11:04 AM CDT DTL Albumin, S 4.7 3.5 - 5.0 g/dL 06/27/2022 11:04 AM CDT DTL Aspartate Aminotransferase (AST), S 20 8 - 48 U/L 06/27/2022 11:04 AM CDT DTL Alkaline Phosphatase, S 103 40 - 129 U/L 06/27/2022 11:04 AM CDT DTL Alanine Aminotransferase (ALT), S 22 7 - 55 U/L 06/27/2022 11:04 AM CDT DTL Bilirubin, Total, S 0.6 <=1.2 mg/dL 06/27/2022 11:04 AM CDT DTL Blood (Blood, Venous) 06/27/2022 10:01 AM CDT 06/27/2022 10:38 AM CDT Rayna Chapin M.D. LAB BLOOD ADD-ON [facility] [address] [place] [address], [place] DTL [facility] [address] [place] [address] from Last 3 Months or Most Recently Relevant to Health Maintenance Advance Directives For more information, please contact: [phone] * Full Code (Latest Code Status on File) Date Activated Date Inactivated Comments 04/08/2018 10:48 AM 04/09/2018 1:29 PM Question Answer Comments Full Code: Discussed * Full Code Date Activated Date Inactivated Comments 04/08/2018 5:46 AM 04/08/2018 10:48 AM Question Answer Comments Full Code: Discussed Care Teams Restorative Art Embalmer Relationship Specialty Start Date End Date Elsewhere, Pcp PCP - General Internal Medicine 03/21/22
--- OUTSIDE RECORDS SUMMARY | 2024-04-20 20:27 | XMS_ITS | Encounter Summary ---
Author Organization [facility] Address [address] [place] [address] Care Team Providers Care Marketing Operations Manager Name Role Phone Tony Jones MD Primary Care Provider [phone] Encounter Details Date Type Department Care Team (Latest Contact Info) Description 12/28/1994 [place] [address] [place] [address] Social History Tobacco Use Types Packs/Day Years Used Date Smoking Tobacco: Never Assessed Sex and Gender Information Value Date Recorded Sex Assigned at Not on file Gender Identity Not on file Sexual Orientation Not on file documented as of this encounter Plan of Treatment Not on file documented as of this encounter Visit Diagnoses Not on filedocumented in this encounter Care Teams Marketing Operations Manager Relationship Specialty [place] [address] [place] [address] PCP - General 06/14/1998 documented as of this encounter
--- OUTSIDE RECORDS SUMMARY | 2024-04-20 20:27 | XMS_ITS | Encounter Summary ---
Author Organization [facility] Address [address] [place] [address] Care Team Providers Care Front Office Coordinator Name Role Phone Tony Jones MD Primary Care Provider [phone] Encounter Details Date Type Department Care Team (Latest Contact Info) Description 10/22/1994 [place] [address] [place] [address] Social History Tobacco Use Types Packs/Day Years Used Date Smoking Tobacco: Never Assessed Sex and Gender Information Value Date Recorded Sex Assigned at Not on file Gender Identity Not on file Sexual Orientation Not on file documented as of this encounter Plan of Treatment Not on file documented as of this encounter Visit Diagnoses Not on filedocumented in this encounter Care Teams Front Office Coordinator Relationship Specialty [place] [address] [place] [address] PCP - General 06/14/1998 documented as of this encounter
--- OUTSIDE RECORDS SUMMARY | 2024-04-20 20:27 | XMS_ITS | Encounter Summary ---
Author Organization [facility] Address [address] [place] [address] Care Team Providers Care Principal Planner Name Role Phone Tony Jones MD Primary Care Provider [phone] Encounter Details Date Type Department Care Team (Latest Contact Info) Description 07/12/1998 [place] [address] [place] [address] Social History Tobacco Use Types Packs/Day Years Used Date Smoking Tobacco: Never Assessed Sex and Gender Information Value Date Recorded Sex Assigned at Not on file Gender Identity Not on file Sexual Orientation Not on file documented as of this encounter Plan of Treatment Not on file documented as of this encounter Visit Diagnoses Not on filedocumented in this encounter Care Teams Principal Planner Relationship Specialty [place] [address] [place] [address] PCP - General 06/14/1998 documented as of this encounter
--- OUTSIDE RECORDS SUMMARY | 2024-04-20 20:27 | XMS_ITS | Encounter Summary ---
Author Organization [facility] Address [address] [place] [address] Care Team Providers Care Service Desk Director Name Role Phone Tony Jones MD Primary Care Provider Encounter Details Date Type Department Care Team (Latest Contact Info) Description 02/05/1996 [place] [address] [place] [address] Social History Tobacco Use Types Packs/Day Years Used Date Smoking Tobacco: Never Assessed Sex and Gender Information Value Date Recorded Sex Assigned at Not on file Gender Identity Not on file Sexual Orientation Not on file documented as of this encounter Plan of Treatment Not on file documented as of this encounter Visit Diagnoses Not on filedocumented in this encounter Care Teams Service Desk Director Relationship Specialty [place] [address] [place] [address] PCP - General 06/14/1998 documented as of this encounter
--- OUTSIDE RECORDS SUMMARY | 2024-04-20 20:27 | XMS_ITS | Encounter Summary ---
Author Organization [facility] Address [address] [place] [address] Care Team Providers Care Manager Reading Name Role Phone Tony Jones MD Primary Care Provider [phone] Encounter Details Date Type Department Care Team (Late st Contact Info) Description 11/16/1997 Orders Only [facility] Tony Mo [facility] [address] [place] [address] Social History Tobacco Use Types Packs/Day Years Used Date Smoking Tobacco: Never Assessed Sex and Gender Information Value Date Recorded Sex Assigned at Not on file Gender Identity Not on file Sexual Orientation Not on file documented as of this encounter Plan of Treatment Not on file documented as of this encounter Visit Diagnoses Not on filedocumented in this encounter Care Teams Manager Reading Relationship Specialty [place] [address] [place] [address] PCP - General 06/14/1998 documented as of this encounter
--- OUTSIDE RECORDS SUMMARY | 2024-04-20 20:27 | XMS_ITS | Clinical Summary ---
Author Organization [facility] Address [address] [place] [address] Care Team Providers Care Panelboard Tank Pumper Name Role Phone Elsewhere, Pcp Primary Care Provider Unavailabl e Source Comments Patient records contain information from all sites at [facility]. For routine questions regarding patient records, call [phone] during business hours, M-F 8:00 AM - 5:00 PM Central Time. 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 No muscle [...] week 03/20/2022 How often do you attend [facility] or yazidi services? More than 4 times per year 03/20/2022 Do you belong to any clubs o r organizations such as synagogue groups, unions, fraternal or athletic groups, or [...] and heating? Not hard at all 04/04/2023 [facility] - Occupational [...] your living situation today? I have a [facility] place to live 04/04/2023 Education Answer [...] 07/24/2023 12:28 PM CDT Plan of Treatment Health Maintenance Due Date Last Done Comments Abdominal Aortic Aneurysm (AAA) Screen 1957 CT Colonography 1955 Cologuard 1955 Hepatitis C Screening 1955 Colonoscopy 09/12/2021 09/12/2016 (Perf ormed elsewhere) Colorectal Cancer Surveillance 09/12/2021 Pneumococcal vaccine (65+ years) (3 of 3 - PPSV23 or PCV20) 01/08/2023 01/13/2019, 01/08/2018 COVID-19 Vaccine (3 - 2022- season) 2023 05/19/2021, 04/28/2021 Depression Screening (Annual PHQ-2) 09/23/2023 Fall Risk Screen (Annual) 09/23/2023 Influenza Vaccine (#1) 2024 , 08/06/2022, 06/28/2020, Additional history exists Fasting Glucose for Diabetes Screening 06/27/2025 06/27/2022, 06/05/2019, 09/15/2018, Additional history exists DTaP,Tdap,and Td Vaccines (3 - Td or Tdap) 08/06/2029 08/06/2019, 02/16/2009, 04/30/2003, Additional history exists Zoster Vaccines Completed 08/17/2019, 05/21/2019 HPV Vaccines Aged Out No longer eligi ble based on patient's age to complete this topic Medical Devices Implanted Type Area Chief Ophthalmic Technician Device Identifier Shelf Expiration Date Model / [...] CDT Rayna Chapin M.D. LAB BLOOD ADD-ON [facility] [address] [place] [address], [facility] DTL [facility] [address] [place] [address] from Last 3 Months or Most Recently Relevant to Health Maintenance Advance Directives For more information, please contact: [phone] * Full Code (Latest Code Status on File) Date Activated Date Inactivated Comments 04/08/2018 10:48 AM 04/09/2018 1:29 PM Question Answer Comments Full Code: Discussed * Full Code Date Activated Date Inactivated Comments 04/08/2018 5:46 AM 04/08/2018 10:48 AM Question Answer Comments Full Code: Discussed Care Teams Panelboard Tank Pumper Relationship Specialty Start Date End Date Elsewhere, Pcp PCP - General Internal Medicine 03/21/22
--- OUTSIDE RECORDS SUMMARY | 2024-04-20 20:27 | XMS_ITS ---
Author Organization [facility] Address [address] [place] [address] Care Team Providers Care Cabana Attendant Name Role Phone Unavailable Unavailable Unavailable Surgery Details Not on file Complications Check Surgery Details section. Procedure Estimated Blood Loss Check Surgery Details section. Procedure Findings Check Surgery Details section. Procedure Specimens Taken Check Surgery Details section.
--- OUTSIDE RECORDS SUMMARY | 2024-04-20 20:27 | XMS_ITS | Encounter Summary ---
Author Organization [facility] Address [address] [place] [address] Care Team Providers Care Radio Aerial Installer Name Role Phone Tony Jones MD Primary Care Provider [phone] Encounter Details Date Type Department Care Team (Latest Contact Info) Description 09/27/1997 Orders Only Srinivasa Knott MD [address] [place] [address] Social History Tobacco Use Types Packs/Day Years Used Date Smoking Tobacco: Never Assessed Sex and Gender Information Value Date Recorded Sex Assigned at Not on file Gender Identity Not on file Sexual Orientation Not on file documented as of this encounter Plan of Treatment Not on file documented as of this encounter Visit Diagnoses Not on filedocumented in this encounter Care Teams Radio Aerial Installer Relationship Specialty [place] [address] [place] [address] PCP - General 06/14/1998 documented as of this encounter
--- OUTSIDE RECORDS SUMMARY | 2024-04-20 20:27 | XMS_ITS | Encounter Summary ---
Author Organization [facility] Address [address] [place] [address] Care Team Providers Care Production Clerk Name Role Phone Tony Jones MD Primary Care Provider [phone] Encounter Details Date Type Department Care Team (Latest Contact Info) Description 03/02/1998 [place] [address] [place] [address] Social History Tobacco Use Types Packs/Day Years Used Date Smoking Tobacco: Never Assessed Sex and Gender Information Value Date Recorded Sex Assigned at Not on file Gender Identity Not on file Sexual Orientation Not on file documented as of this encounter Plan of Treatment Not on file documented as of this encounter Visit Diagnoses Not on filedocumented in this encounter Care Teams Production Clerk Relationship Specialty [place] [address] [place] [address] PCP - General 06/14/1998 documented as of this encounter
--- NOTE | 2024-04-20 20:37 | ED.NAVMDI ---
HPI - Nausea/Vomiting/Diarrhea General Date Seen: 04/20/24 Chief complaint: Nausea/Vomiting Stated complaint: dehydration/vomiting Time Seen by Provider: 04/20/24 19:50 Source: patient Mode of arrival: ambulatory Limitations: no limitations History of Present Illness HPI Narrative: Patient is a 69-year-old male presenting to the emergency department for multiple complaints but his main complaint seems to be dizziness and nausea that has since resolved. States the past few days he has been having chills, fatigue, nausea. He has also been noticing worsening epigastric pain. He has been seeing [facility] for this epigastric pain. States since the but worse than normal. States today he was working in the heat when he is feeling worsening dizziness and dehydration so he went into the bathroom to take a bath. He had an episode of diarrhea so he cleaned himself off and then cotton for a another bath this time with warm water. He states his then found him sleeping in the bathtub. He get up was feeling dizzy still and considering all of his symptoms they said to come into the emergency department. Of note his dizziness has also been a chronic issue that he has been seeing [facility] for. Related Data Home Medications ?Medication ?Instructions ?Recorded ?Confirmed chlorhexidine gluconate 0.12 % PO 04/20/24 mouthwash clindamycin HCl 150 mg capsule 300 mg PO QID 04/20/24 04/20/24 Allergies Allergy/AdvReac Type Severity Reaction Status Date / Time ketorolac [From Toradol] Allergy Intermediate Hives Verified 11/15/23 08:42 Quinolones Allergy Intermediate Hives Verified 11/15/23 08:42 Penicillins Allergy Mild Rash Verified 11/15/23 08:42 Sulfa (Sulfonamide Allergy Mild Verified 11/15/23 08:42 Antibiotics) Review of Systems Status of ROS: Reports: 10 or more systems reviewed and unremarkable except as noted in History and below [facility] Medical History 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 - Other specified disorders involving the immune mechanism, not elsewhere classified (ICD-10) Allergic rhinitis ?J30.9 - Allergic rhinitis, unspecified (ICD-10) Thyroid nodule ?E04.1 - Nontoxic single thyroid nodule (ICD-10) Mild anxiety ?F41.9 - Anxiety disorder, unspecified (ICD-10) Ground glass opacity present on imaging of lung ?R91.8 - Other nonspecific abnormal finding of lung field (ICD-10) Gastroesophageal reflux disease ?K21.9 - Gastro-esophageal reflux disease without esophagitis (ICD-10) Chronic cough ?R05.3 - Chronic cough (ICD-10) Bronchiectasis ?J47.9 - Bronchiectasis, uncomplicated (ICD-10) Surgical History History of shoulder surgery (1996) ?Z98.890 - Other specified postprocedural states (ICD-10) History of nasal surgery (1975) ?Z98.890 - Other specified postprocedural states (ICD-10) History of esophagogastroduodenoscopy (EGD) (~1999) ?Z98.890 - Other specified postprocedural states (ICD-10) History of bilateral inguinal hernia repair (2011) ?Z98.890 - Other specified postprocedural states (ICD-10) ?Z87.19 - Personal history of other diseases of the digestive system (ICD-10) Family History Father CHF (congestive heart failure) Diabetes Thyroid cancer Mother Depression Family history of emphysema Paternal Grandfather Diabetes Daughter Thyroid cancer Brother Colonic polyp Social History Narrative: , 3 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, 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 regularly- 3x/week cardio, run marathons and half marathons nonsmoker - as teenager, 6 pack years social drinker- 1/week What is your current living situation?: I presently have a place to live Problems where you live: pests, such as bugs, ants, or mice In the past 12 months, utilities in danger of being shut off: no In past 12 months, lack of transportation kept you from medical appts, meetings, work, or getting things needed for daily living: no In the past 12 mos, have been you worried that your food would run out before you had money to buy more?: never true In the past 12 mos, the food you bought just didn't last and you didn't have money to buy more?: never true Smoking Status: Never smoker Do you use any of these nicotine containing products: None Second hand tobacco smoke exposure: No How often do you have a drink containing alcohol: monthly or less AUDIT-C Alcohol total score: 1 Non-prescribed substance use: denies use How often does anyone, including family, friends and others, physically hurt you: never How often does anyone, including family, friends and others, insult or talk down to you: never How often does anyone, including family, friends and others, threaten you with harm: never How often does anyone, including family, friends and others, scream or curse at you: never Little interest or pleasure in doing things: several days Feeling down, depressed, or hopeless: not at all service: No Exam Narrative: Exam Narrative: Const: Well-nourished, Well-developed, in mild distress Eyes: PERRL, no conjunctival injection, and symmetrical lids HENT: Atraumatic external nose and ears. Moist mucous membranes. Neck: Symmetric, trachea midline, No thyromegaly. CVS: RRR, No murmurs or gallops. Peripheral pulses 2+ and equal in all extremities RESP: Unlabored respiratory effort. Clear to auscultation bilaterally. GI: Nontender/Nondistended, No rebound or guarding. MSK:Extremities w/o deformity, Normal Active ROM Skin: Warm, Dry. No rashes or lesions. Neuro: Normal Muscle tone, No focal neurological deficits. Psych: Awake, Alert, & Oriented x3. Appropriate mood and affect. Const: Vital Signs, click to edit/add: Vital Signs - 24 hr 04/20/24 19:50 Temperature 98.6 F Pulse Rate [Pulse Oximeter] 90 Respiratory Rate 16 Blood Pressure [Ri ght Upper Arm] 124/78 Pulse Oximetry 98 Oxygen Delivery Me thod Room Air Course Vital Signs Vital signs: Initial Vital Signs Temperature 98.6 F 04/20/24 19:50 Temperature Source Temporal Artery Scan 04/20/24 19:50 Pulse Rate 90 04/20/24 19:50 Respiratory Rate 16 04/20/24 19:50 Blood Pressure 124/78 04/20/24 19:50 Blood Pressure Mean 93 04/20/24 19:50 Blood Pressure Position Sitting 04/20/24 19:50 Pulse Oximetry 98 04/20/24 19:50 Oxygen Delivery Method Room Air 04/20/24 19:50 Vital Signs Temperature 98.6 F 04/20/24 19:50 Pulse Rate 90 04/20/24 19:50 Respiratory Rate 16 04/20/24 19:50 Blood Pressure 124/78 04/20/24 19:50 Pulse Oximetry 98 04/20/24 19:50 Oxygen Delivery Method Room Air 04/20/24 19:50 Temperature 98.6 F 04/20/24 19:50 Pulse Rate 90 04/20/24 19:50 Respiratory Rate 16 04/20/24 19:50 Blood Pressure 124/78 04/20/24 19:50 Pulse Oximetry 98 04/20/24 19:50 Oxygen Delivery Method Room Air 04/20/24 19:50 Medications Administered Medications: Discontinued Medications Generic Name Dose Route Start Last Admin Trade Name Freq PRN Reason Stop Dose Admin Diphenhydramine HCl 25 mg 04/20/24 20:15 04/20/24 20:25 Diphenhydramine 50 Mg/Ml Inj IVP 04/20/24 20:16 25 mg ONCE ONE Administration Lactated Ringer's 1,000 mls @ 1,000 mls/hr 04/20/24 20:15 04/20/24 21:27 Lactated Ringers 1000 Ml IV 04/20/24 21:14 Infused .Q1H ONE Infusion Metoclopramide HCl 10 mg 04/20/24 20:15 04/20/24 20:27 Metoclopramide Hcl 5 Mg/Ml Inj IVP 04/20/24 20:16 10 mg ONCE ONE Administration MDM - Nausea/Vomiting/Diarrhea MDM Narrative Medical decision making narrative: Patient is a 69-year-old male presenting for multiple complaints. There is concerned dehydration so L lactated Ringer was ordered. Also check a CBC and CMP. He is having some epigastric pains are will check a lipase. At this time I do not believe imaging is necessary as he is already seeing [facility] for this problem and would be unnecessary test. Also give him the rest of the migraine cocktail which includes right gland and Benadryl for his headache. Lab work all returned and was reassuring. He is of slightly low white blood cell count and platelet count which could be a sign of a viral infection. He is otherwise doing well at this time is feeling more bit better. I believe he is safe for discharge and he is agreeable to this plan. Lab Data Labs: Lab Results 04/20/24 Range/Units 20:23 WBC 4.40 L (4.50-11.00) K/uL RBC 4.73 (4.30-5.90) m/uL Hgb 14.6 (13.5-17.5) gm/dL Hct 42.9 (37.0-53.0) % MCV 91 (80-100) fL MCH 31 (26-34) pg MCHC 34 (32-36) gm/dL RDW Coeff of Yung 12.9 (11.5-15.5) % Plt Count 122 L (140-440) K/uL Neut % (Auto) 82.8 H (42.0-72.0) % Lymph % (Auto) 5.9 L (20-44) % [place] % (Auto) 9.5 (0.0-11.0) % Eos % (Auto) 1.1 (0.0-7.0) % Baso % (Auto) 0.7 (0.0-3.0) % Neut # (Auto) 3.60 (1.7-7.0) K/uL Lymph # (Auto) 0.30 L (0.90-2.90) K/uL [place] # (Auto) 0.40 (0.00-0.90) K/UL Eos # (Auto) 0.00 (0.00-0.50) K/uL Baso # (Auto) 0.00 (0.00-0.30) K/uL Abs Immat Gran (auto) 0.00 (0.00-0.30) K/uL Imm/Tot Granulo (auto) 0.0 % Sodium 136 (135-149) mmol/L Potassium 4.5 (3.6-5.1) mmol/L Chloride 103 (96-114) mmol/L Carbon Dioxide 24 (20-32) mmol/L Anion Gap 9 (7-15) mEq/L BUN 12 (7-30) mg/dL Creatinine 1.2 (0.5-1.5) mg/dL Estimated Creat Clear 59.74 Estimated GFR 66 ml/min Glucose 116 H (60-115) mg/dL Calcium 8.6 (8.4-10.6) mg/dL Magnesium 1.9 (1.5-2.6) mg/dL Total Bilirubin 0.8 (0.1-1.5) mg/dL AST 32 (12-35) U/L ALT 28 (4-50) U/L Alkaline Phosphatase 87 (40-150) U/L Total Protein 7.3 (6.0-8.3) g/dL Albumin 4.4 (3.3-5.0) g/dL Lipase 126 (23-300) U/L Discharge Plan Discharge Clinical Impression: Dehydration Headache Qualifiers: Headache type: unspecified Headache chronicity pattern: unspecified pattern Intractability: not intractable Qualified Code(s): R51.9 - Headache, unspecified Abdominal pain Qualifiers: Abdominal location: epigastric Qualified Code(s): R10.13 - Epigastric pain Patient Disposition: Home, Self-Care Condition: Improved Instructions: Acute Headache (DC) Additional Instructions: He has a cannot say for certain was causing his symptoms but lab work looks reassuring at this time. I do recommend to follow up outpatient with your GI provider. Prescriptions: No Action clindamycin HCl 150 mg capsule 300 mg PO QID chlorhexidine gluconate 0.12 % mouthwash PO Follow Up/Referrals: Violet James MD [Primary Care Provider] - Stand Alone Forms: [email or web address] Info Instructions
[2024-04-20 20:46] LABS: Basophils Percent Auto 0.7 % (0.0-3.0); Eosinophils Percent Auto 1.1 % (0.0-7.0); Hematocrit 42.9 % (37.0-53.0); Hemoglobin* 14.6 gm/dL (13.5-17.5); Lymphocytes Percent Auto 5.9 % (20-44); Mean Corpuscular HGB Conc 34 gm/dL (32-36); Mean Corpuscular Hemoglobin 31 pg (26-34); Mean Corpuscular Volume 91 fL (80-100); Monocytes Percent Auto 9.5 % (0.0-11.0); Neutrophils Percent Auto 82.8 % (42.0-72.0); Platelet Count* 122 K/uL (140-440); RDW Coefficient of Variation % 12.9 % (11.5-15.5); Red Blood Count 4.73 m/uL (4.30-5.90)
[2024-04-20 21:14] LABS: Slide Review Reflex No
[2024-04-20 21:15] LABS: Chloride* 103 mmol/L (96-114)
[2024-04-20 21:16] LABS: Albumin* 4.4 g/dL (3.3-5.0); Sodium* 136 mmol/L (135-149)
[2024-04-20 21:17] LABS: Potassium* 4.5 mmol/L (3.6-5.1)
[2024-04-20 21:19] LABS: Alanine Aminotransferase* 28 U/L (4-50); Alkaline Phosphatase* 87 U/L (40-150); Anion Gap 9 mEq/L (7-15); Aspartate Amino Transferase* 32 U/L (12-35); Bilirubin Total* 0.8 mg/dL (0.1-1.5); Blood Urea Nitrogen* 12 mg/dL (7-30); Calcium* 8.6 mg/dL (8.4-10.6); Carbon Dioxide* 24 mmol/L (20-32); Creatinine* 1.2 mg/dL (0.5-1.5); Est. Creatinine Clearance* 59.74; Estimated Glomerular Filt Rate 66 ml/min; Glucose* 116 mg/dL (60-115); Lipase* 126 U/L (23-300); Total Protein* 7.3 g/dL (6.0-8.3)
[2024-04-20 21:20] LABS: Magnesium* 1.9 mg/dL (1.5-2.6)
== END 2024-04-20 21:48 | disposition home or self-care (01) ==
PROVIDERS: Emergency Provider Student in an Organized Health Care Education/Training Program; PCP Family Medicine
DX: E86.0 Dehydration (principal); R51.9 Headache, unspecified; R10.9 Unspecified abdominal pain
CPT/HCPCS: 36415; 80053; 83690; 83735; 85025; 96361; 96374; 96375; 99283; 99284; J1200; J2765; J7120

== ENCOUNTER 2024-05-11 08:47 | Outpatient (CLI) | payer MEDICARE, SELFPAY | END 2024-05-11 08:48 | disposition home or self-care (01) | LOC: NFLDREF 15:00 | PROVIDERS: PCP Family Medicine; Referring Provider Family Medicine; Visit Provider Family Medicine | DX: R73.01 Impaired fasting glucose (principal); E78.5 Hyperlipidemia, unspecified; Z12.5 Encounter for screening for malignant neoplasm of prostate | CPT/HCPCS: 80061; 82947; G0103 ==

== ENCOUNTER 2024-12-28 07:30 | Outpatient (RCR) | payer MEDICARE, SELFPAY ==
--- NOTE | 2024-11-02 11:03 | PT.OPE ---
PT [place] [facility] Eval PT [facility] Outpatient Eval Start: 11/02/24 09:42 Freq: Status: Active Protocol: Document 11/02/24 09:42 VIVEK (Rec: 11/02/24 11:00 HENRIETTAAnton [id number]) E-signed By Chemo Holley, PT, ATC Physical Therapy Outpatient Evaluation Insurance Information Insurance Name Medicare B Medical Diagnosis M25.511 pain in right shoulder M25.512 pain in left shoulder Treating Diagnosis R and L shoulder pain Imaging Report Information No recent xrays. Referring MD James Subjective Preferred Name Prashanth Subjective Prashanth's chief complaint is R > L shoulder pain occurring at night as well as intermittently with active use during the day. His ability to sleep through the night is interrupted 3-4x due to the shoulder pain. Also forced to sleep only on his stomach as side lying and back sleeping are uncomfortable. Reaching out forward and lifting weighted items, especially the return, are pain producing. Symptoms have progressively been worsening, especially over the past few months. PMHx includes a R shoulder RCR and a L shoulder decompression procedure. 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 Precautions Weight Bearing Status Toe Touch Weight Bearing Objective Range of Motion Active: WNL bilaterally. End range Flex and IR create shoulder soreness. Passive: WNL Strength 5/5 all patterns bilaterally. Palpation Increased muscle tension and spasm presence in upper trapezius, levator scapulae and interscapular muscles, R > L. Posture Stands with mild anterior shoulder position bilaterally. Slight forward head with Dowager's Hump evident at C7- T1 junction. Assessment Assessment/Impression Prashanth is a pleasant 69 year old retired man experiencing daily R and L shoulder discomfort which also interferes with his sleeping at night. The examination did not support a rotator cuff tear or RC tendonitis. 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 A skilled PT program designed for light RC exercise, upper back stabilization and stretching is intended. Should symptoms continue despite the POC, is suggest he sees an Orthopedic surgeon to determine whether degeneration exists within the glenohumeral joint and to what extent. Primary Functional Limitations Sleeping Reaching Lifting items, especially with resistance. Plan of Care Rehabilitation Potential Fair Rehabilitation Potential Comments Suspected OA of the GH joints. Physical Therapy Goals 1.Independent and correct performance with his home ex program for shoulder and upper back stretching and strengthening. 2.Lessen sleep interruption to 1-2x per evening. 3.Improved confidence with ability for lifting grandchildren safely without the fear of pain and weakness. Coordination/Communication With Referral Source Treatment Plan/Direct Interventions Joint Mobilization,Manual Therapy,Therapeutic Exercises Frequency/Duration 3-9 visits Patient Will Be Discharged From Therapy Independent w/HEP, Independently Progressing Evaluation Billing Untimed Code Treatment Minutes 30 PT Eval No Charge No Complexity Low Certification Information Provider Signature Required Yes Provider Signature Shows Agreement With POC & Medical Necessity Physician NPI Number Write NPI# Here Physician Comment/Change : Physician Signature & Date Requested Please Sign/Date Here
== END 2025-04-27 23:59 | disposition home or self-care (01) ==
PROVIDERS: PCP Family Medicine; Visit Provider Family Medicine
DX: M25.511 Pain in right shoulder (principal); M25.512 Pain in left shoulder; G89.29 Other chronic pain; Z51.89 Encounter for other specified aftercare
CPT/HCPCS: 97110; 97140; 97161

== ENCOUNTER 2025-02-06 14:08 | Emergency (ER) | payer MEDICARE, SELFPAY ==
[2025-02-06 14:35] VITALS: BP 144/84; PULSE 92; RESP 16; TEMP 36.8; O2SAT 98; BMI 29.5
--- NOTE | 2025-02-06 15:22 | CRLHL7_ITS ---
For Patients: As a result of the Century Cures Act, medical imaging exams and procedure reports are released immediately into your electronic medical record. You may view this report before your referring provider. If you have questions, please contact your health care provider. Indication: Trauma, struck by tree. Technique: Noncontrast CT of the cervical spine with multiplanar reconstruction utilizing bone and soft tissue algorithms. Comparison: None available. Findings: No acute fracture or traumatic subluxation. No lytic or blastic lesion. Minimal grade 1 3 mm anterolisthesis at C4-C5 and C6-C7. Multilevel interbody height loss most pronounced at C5-C6. Degenerative ankylosis of the left C2-C3 and C3-C4 facet joints. No high-grade spinal canal stenosis multilevel neural foraminal narrowing, moderate on the left at C3-C4, right C4-C5 and left at C6-C7. Incidentally noted 8 mm hypodense right lower pole thyroid nodule which requires no further follow-up by ACR criteria. Impression: 1. No acute fracture or traumatic subluxation. 2. Moderate multilevel cervical spondylosis as above. Please note that all CT scans at this facility use dose modulation, iterative reconstruction, and/or weight-based dosing when appropriate to reduce radiation dose to as low as reasonably achievable. Dictated by Gentry English MD @ 02/06/2025 4:19:21 PM (Electronically Signed)
--- NOTE | 2025-02-06 15:22 | CRLHL7_ITS ---
For Patients: As a result of the Century Cures Act, medical imaging exams and procedure reports are released immediately into your electronic medical record. You may view this report before your referring provider. If you have questions, please contact your health care provider. INDICATION: Struck by tree, facial trauma. TECHNIQUE: Noncontrast CT of the head with multiplanar reconstruction utilizing bone and soft tissue algorithms. COMPARISON: None available. FINDINGS: No acute intracranial hemorrhage. The ching-white matter interface is preserved. The ventricles are normal in size. No abnormal extra-axial fluid collection is identified. Left frontal scalp laceration. No underlying calvarial fracture. Symmetric globes. Operative changes of functional endoscopic sinus surgery. Mild diffuse paranasal sinus mucosal thickening. IMPRESSION: 1. No acute intracranial hemorrhage. 2. Left frontal scalp laceration and hematoma. No underlying calvarial fracture. Please note that all CT scans at this facility use dose modulation, iterative reconstruction, and/or weight-based dosing when appropriate to reduce radiation dose to as low as reasonably achievable. Dictated by Gentry English MD @ 02/06/2025 4:04:51 PM (Electronically Signed)
--- NOTE | 2025-02-06 15:22 | ED.GENADULT ---
HPI - General Adult General Date Seen: 02/06/25 Chief complaint: Head Injury/Pain Stated complaint: facial laceration Time Seen by Provider: 02/06/25 15:06 History of Present Illness HPI narrative: 69-year-old male presenting to the ER today with a head/facial injury and laceration. He was cutting down a tree today and he was struck in the head as the tree fell. He had no loss of consciousness. He does have a headache, nauseous and feels somewhat dizzy. Patient is described that he was up on a ladder which was leaning on a tree branch in he was trying to trim off the bed edges of the branch. As he was trimming the branch with a chain saw the branch broke and then kicked back awkwardly and struck him in the face. He suffered a laceration to his left forehead running from eyebrow a port on forehead. He was momentarily dazed but not knocked out and did not fall off the ladder. He was able to climb down asked his to bring him to the hospital. He was bleeding dark red blood from the cut but no pulsatile bleeding and bleeding was controlled by direct pressure. He does have a headache. Feels mildly nauseous. Vision is normal. No diplopia. He is not anticoagulated or coagulopathic. No other injuries. Related Data Home Medications ?Medication ?Instructions ?Recorded ?Confirmed cetirizine 10 mg capsule (Zyrtec) 10 mg PO QDAY PRN 05/13/24 02/06/25 Allergies Allergy/AdvReac Type Severity Reaction Status Date / Time ketorolac (From Toradol) Allergy Intermediate Hives Verified 02/06/25 14:33 Quinolones Allergy Intermediate Hives Verified 02/06/25 14:33 Penicillins Allergy Mild Rash Verified 02/06/25 14:33 Sulfa (Sulfonamide Allergy Mild Verified 02/06/25 14:33 Antibiotics) [facility] Medical History (Updated 02/06/25 @ 16:54 by Kelby Barrett MD) Chronic pain of right knee ?M25.561 - Pain in right knee (ICD-10) ?G89.29 - Other chronic pain (ICD-10) 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 - Other specified disorders involving the immune mechanism, not elsewhere classified (ICD-10) Allergic rhinitis ?J30.9 - Allergic rhinitis, unspecified (ICD-10) Thyroid nodule ?E04.1 - Nontoxic single thyroid nodule (ICD-10) Mild anxiety ?F41.9 - Anxiety disorder, unspecified (ICD-10) Ground glass opacity present on imaging of lung ?R91.8 - Other nonspecific abnormal finding of lung field (ICD-10) Gastroesophageal reflux disease ?K21.9 - Gastro-esophageal reflux disease without esophagitis (ICD-10) Chronic cough ?R05.3 - Chronic cough (ICD-10) Bronchiectasis ?J47.9 - Bronchiectasis, uncomplicated (ICD-10) Surgical History (Updated 10/21/24 @ 08:18 by Violet James MD) History of shoulder surgery (1996) ?Z98.890 - Other specified postprocedural states (ICD-10) History of nasal surgery (1975) ?Z98.890 - Other specified postprocedural states (ICD-10) History of esophagogastroduodenoscopy (EGD) (~1999) ?Z98.890 - Other specified postprocedural states (ICD-10) History of bilateral inguinal hernia repair (2011) ?Z98.890 - Other specified postprocedural states (ICD-10) ?Z87.19 - Personal history of other diseases of the digestive system (ICD-10) Family History Father CHF (congestive heart failure) Diabetes Thyroid cancer Mother Depression Family history of emphysema Paternal Grandfather Diabetes Daughter Thyroid cancer Brother Colonic polyp Social History (Updated 05/13/24 @ 10:34 by Violet James MD) Narrative: , 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 nonsmoker - as teenager, 6 pack years social drinker- 1/week What is your current living situation?: I presently have a place to live Problems where you live: pests, such as bugs, ants, or mice In the past 12 months, utilities in danger of being shut off: no In past 12 months, lack of transportation kept you from medical appts, meetings, work, or getting things needed for daily living: no In the past 12 mos, have been you worried that your food would run out before you had money to buy more?: never true In the past 12 mos, the food you bought just didn't last and you didn't have money to buy more?: never true Smoking Status: Never smoker Do you use any of these nicotine containing products: None Second hand tobacco smoke exposure: No How often do you have a drink containing alcohol: monthly or less AUDIT-C Alcohol total score: 1 Non-prescribed substance use: denies use How often does anyone, including family, friends and others, physically hurt you: never How often does anyone, including family, friends and others, insult or talk down to you: never How often does anyone, including family, friends and others, threaten you with harm: never How often does anyone, including family, friends and others, scream or curse at you: never service: No Health Related Social Needs: Inadequate housing (Z59.1) Exam Narrative: Exam Narrative: Constitutional: Appears well-developed and well-nourished. Alert. Conversant. Non toxic. HENT: Head: There is a 4-5 cm C-shaped laceration on the patient's left forehead extending from the left medial eyebrow upward on the forehead. The middle portion is gaping a cm to and the laceration is through the skin, dermis, frontalis muscle and down to the frontal bone of the skull. Fortunately no foreign body.. Nose: Nose normal. Mouth/Throat: Oral mucosa is clear and moist. no trismus. Pharynx normal. Tonsils symmetric. No tonsillar enlargement, erythema, or exudate. Eyes: Conjunctivae normal. EOM normal. Pupils equal, round, and reactive to light. No scleral icterus. No exophthalmos or enophthalmos. Neck: Normal range of motion. Neck supple. No tracheal deviation present. Cardiovascular: Normal rate, regular rhythm. No gallop. No friction rub. No murmur heard. Symmetric radial artery pulses Pulmonary/Chest: Effort normal. No stridor. No respiratory distress. No wheezes. No rales. No rhonchi . No tenderness. Abdominal: Soft. No distension. No mass. No tenderness. No rebound. No guarding. Musculoskeletal: RUE: Normal range of motion. No tenderness. No deformity LUE: Normal range of motion. No tenderness. No deformity RLE: Normal range of motion. No edema. No tenderness. No deformity LLE: Normal range of motion. No edema. No tenderness. No deformity Lymph: No cervical adenopathy. Neurological: Mental status normal. Attention normal. Alert and oriented x3. GCS 15. Memory normal. Speech fluent. Cognition normal. Cranial Nerves intact II-XII except I did not formally test gag or visual acuity. EOMI. Palate elevates symmetrically and tongue protrudes in the midline. Strength: 5/5 trapezius on the right and left 5/5 deltoid on the right and left 5/5 biceps on the right and left 5/5 triceps on the right and left 5/5 lunchroom food service supervisor on the right and left 5/5 thumb opposition on the right and left 5/5 finger abduction on the right and left 5/5 hip flexors (L3) on the right and left 5/5 quadriceps (L4) on the right and left 5/5 tibialis anterior on the right and left 5/5 EHL (L5) on the right and left 5/5 gastrocnemius (S1) on the right and left 5/5 hamstring on the right and left Sensation intact to light touch in both upper extremities (C4-T1) Sensation intact to light touch in Both lower extremities (L4-S1). Coordination normal. Gait normal. Skin: Skin is warm and dry. No rash noted. No pallor. Normal capillary refill. Psychiatric: Normal mood. Normal affect. Very polite. Const: Vital Signs, click to edit/add: Vital Signs - 24 hr 02/06/25 14:35 Temperature 98.2 F Pulse Rate [Pulse Oximeter] 92 Respiratory Rate 16 Blood Pressure [Ri ght Upper Arm] 144/84 H Pulse Oximetry 98 Oxygen Delivery Me thod Room Air Course Vital Signs Vital signs: Initial Vital Signs Temperature 98.2 F 02/06/25 14:35 Temperature Source Temporal Artery Scan 02/06/25 14:35 Pulse Rate 92 02/06/25 14:35 Respiratory Rate 16 02/06/25 14:35 Blood Pressure 144/84 H 02/06/25 14:35 Blood Pressure Mean 104 02/06/25 14:35 Pulse Oximetry 98 02/06/25 14:35 Oxygen Delivery Method Room Air 02/06/25 14:35 Vital Signs Temperature 98.2 F 02/06/25 14:35 Pulse Rate 92 02/06/25 14:35 Respiratory Rate 16 02/06/25 14:35 Blood Pressure 144/84 H 02/06/25 14:35 Pulse Oximetry 98 02/06/25 14:35 Oxygen Delivery Method Room Air 02/06/25 14:35 Temperature 98.2 F 02/06/25 14:35 Pulse Rate 92 02/06/25 14:35 Respiratory Rate 16 02/06/25 14:35 Blood Pressure 144/84 H 02/06/25 14:35 Pulse Oximetry 98 02/06/25 14:35 Oxygen Delivery Method Room Air 02/06/25 14:35 Medical Decision Making MDM Narrative Medical decision making narrative: This patient presents with blunt head trauma and a fairly large left frontal forehead laceration.. Differential includes intracranial injuries (e.g. skull fracture, epidural hematoma, subdural hematoma, intracerebral hemorrhage, and traumatic subarachnoid hemorrhage), verses concussion or other traumatic brain injury. CT imaging was obtained and fortunately was normal. At this time it appears that the patient's symptoms are due to a concussion. The patient/family understand that they must return if any red flags appear/develop in the coming hours/days, as this may represent an indication to perform a repeat CT scan or further evaluation. I have noted that red flags include: headaches that get worse, increased drowsiness, strange behavior, repetitive speech, seizures, repeated vomiting, growing confusion, increased irritability, slurred speech, weakness or numbness, and loss of responsiveness. This information will also be provided in writing at discharge. I have discussed the second impact syndrome, and the importance of not sustaining repeated concussion in the next 1-2 weeks. Post concussive syndrome is also discussed. The patient's questions have been answered. They have a responsible adult to accompany them home. Findings and exam are consistent with an large left frontal laceration which was repaired as noted above. There is no evidence at this time to suggest any associated fracture or foreign body. There is no evidence to suggest intracranial injury and patient is neurologically in tact. Wound was closed in layers because of the significant gaping the wound edge. The patient is to follow up for suture removal as instructed in 5-7 days. Indications to seek urgent reevaluation and signs of infection (including but not limited to increasing pain, redness, swelling, fevers, and drainage) were reviewed. Tetanus is up-to-date. This is a clean and noncontaminated wound in which prophylactic antibiotics are not indicated. An understanding of the discharge instructions and need for follow up were verbally confirmed. Imaging Data CT scan - head: Attestation: I have reviewed the pertinent imaging results. My impression: No acute skull fracture, no ICH Radiologist's impression: IMPRESSION: 1. No acute intracranial hemorrhage. 2. Left frontal scalp laceration and hematoma. No underlying calvarial fracture. CT C spine: Attestation: I have reviewed the pertinent imaging results. Radiologist's impression: Impression: 1. No acute fracture or traumatic subluxation. 2. Moderate multilevel cervical spondylosis as above. CT facial bones: Attestation: I have reviewed the pertinent imaging results. Radiologist's impression: Impression: 1. No acute fracture or traumatic subluxation. 2. Left frontal scalp laceration. No radiopaque foreign body or penetrating injury to the adjacent globe. 3. Operative changes of functional endoscopic sinus surgery with mild paranasal sinus residual mucosal thickening. Discharge Plan Discharge Clinical Impression: Laceration of eyebrow and forehead, Concussion Patient Disposition: Home, Self-Care Condition: Stable Instructions: Concussion (ED), Facial Laceration (ED) Additional Instructions: As we discussed, please come back to the ER right away if you have any concerns especially if you have worsening headache, confusion, repetitive vomiting or if you have signs of infection on your cut (redness, swelling, pus draining from the wound). To care for your wound, keep it clean and covered with antibiotic ointment and a dressing. Wash the wound gently with a warm washcloth or warm gauze with clean water once per day. After the wound was clean, air dry it or gently dry with some clean dry gauze. After it is dry reapply a small amount of antibiotic ointment and a dressing to cover the stitches. If you have symptoms of headache it is okay to use Tylenol or other [id number] medications as needed. Prescriptions: No Action Zyrtec 10 mg capsule 10 mg PO QDAY PRN Follow Up/Referrals: Violet James MD [Primary Care Provider] - Stand Alone Forms: [facility] Info Instructions Procedures Laceration Left forehead laceration: Pre procedure diagnosis: Left forehead laceration Verification/time out: correct patient, correct site and correct procedure Site: face (C-shaped laceration on the forehead with the inferior tip on the eyebrow and the superior tip on the mid forehead. Total length about 5 cm. Laceration is down to the frontal bone. No active bleeding. No foreign body.) Side (If applicable): left Size (cm): 5 Description: flap (C-shaped laceration gaping about 1-2 cm.) Depth: involves muscle layer Local Anesthetic: lidocaine 1% and with epi Amount of anesthesia used (mL): 10 Pre-repair: wound explored, irrigated extensively and deep structures intact Skin layer closed with: nylon Size (cm): 6-0 Number of sutures: 11 Technique: simple, interrupted Subcutaneous layer closed with: Vicryl Size: 5-0 Number of sutures: 5 Technique: simple, interrupted
--- NOTE | 2025-02-06 15:32 | CRLHL7_ITS ---
For Patients: As a result of the Cures Act, medical imaging exams and procedure reports are released immediately into your electronic medical record. You may view this report before your referring provider. If you have questions, please contact your health care provider. Indication: Trauma, struck by tree, facial laceration. Technique: Noncontrast CT of the facial bones with multiplanar reconstruction utilizing bone and soft tissue algorithms. Comparison: None available. Findings: No acute fracture or traumatic subluxation. Left frontal scalp hematoma and laceration. Symmetric globes without evidence of penetrating injury. Operative changes of functional endoscopic sinus surgery with residual mucosal thickening throughout the remaining anterior ethmoid air cells and left maxillary alveolar recess. Impression: 1. No acute fracture or traumatic subluxation. 2. Left frontal scalp laceration. No radiopaque foreign body or penetrating injury to the adjacent globe. 3. Operative changes of functional endoscopic sinus surgery with mild paranasal sinus residual mucosal thickening. Please note that all CT scans at this facility use dose modulation, iterative reconstruction, and/or weight-based dosing when appropriate to reduce radiation dose to as low as reasonably achievable. Dictated by Gentry English MD @ 02/06/2025 4:22:50 PM (Electronically Signed)
--- OUTSIDE RECORDS SUMMARY | 2025-02-07 17:29 | XMS_ITS | Encounter Summary ---
Author Organization [employer] Address [address] [place] [address] Care Team Providers Care Contract Negotiation Specialist Name Role Phone Tony Jones MD Primary Care Provider [phone] Encounter Details Date Type Department Care Team (Latest Contact Info) Description 12/08/1999 Orders Only Srinivasa Knott MD [address] [place] [id number] Social History Tobacco Use Types Packs/Day Years Used Date Smoking Tobacco: Never Assessed Sex and Gender Information Value Date Recorded Sex Assigned at Not on file Legal Sex Male 4:12 AM CDT Gender Identity Not on file Sexual Orientation Not on file documented as of this encounter Plan of Treatment Not on file documented as of this encounter Visit Diagnoses Not on filedocumented in this encounter Care Teams Contract Negotiation Specialist Relationship Specialty [place] [address] [place] [address] PCP - General 06/14/1998 documented as of this encounter
--- OUTSIDE RECORDS SUMMARY | 2025-02-07 17:29 | XMS_ITS | Encounter Summary ---
Author Organization [employer] Address [address] [place] [address] Care Team Providers Care Pump Runner Name Role Phone Tony Jones MD Primary Care Provider [phone] Encounter Details Date Type Department Care Team (Latest Contact Info) Description 07/17/1999 Orders Only Srinivasa Knott MD [address] [place] [id number] Social History Tobacco Use Types Packs/Day Years [...] on filedocumented in this encounter Care Teams Pump Runner Relationship Specialty [place] [address] [place] [address] PCP - General 06/14/1998 documented as of this encounter
--- OUTSIDE RECORDS SUMMARY | 2025-02-07 17:29 | XMS_ITS | Clinical Summary ---
Author Organization [employer] Address [address] [place] [address] Care Team Providers Care Sheet Metal Duct Worker Supervisor Name Role Phone Tony Jones MD Primary Care Provider [phone] Source Comments You are receiving this document as you are listed as the primary care provider,follow-up provider, or the patient has been referred to you for consultation.This is in compliance with the Medicare and[facility] EHR Incentive Program,which states Providers who transition their patient to another setting of careor provider of care or refers their patient to another provider of care shouldprovide summary care record for each transition of care or referral. Cognection Allergies Active Allergy Reactions Criticality Noted Date Comments Ketorolac Tromethamine Hives 2012 Penicillin And Derivatives Sulfa Antibiotics Rash 2012 Gatifloxacin Sesquihydrate Hives 2 Medications cetirizine (ZYRTEC ALLERGY) 10 MG tablet Take 10 mg by mouth daily. Active Multiple Vitamins-Minera ls (MULTIVITAMIN OR) Take 1 tablet a day Active zolpidem (AKA AMBIEN) 5 MG tablet Take 1-2 Tabs by mouth at bedtime as needed for Sleep. 8 Tab 0 5 Active Additional Information Patient not taking.Reported on 07/05/2017 Active Problems Problem Noted Date Diagnosed Date Allergic rhinitis 09/30/2014 Thyroid nodule 09/30/2014 Overview (05/15/2017): Neg. 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 Not on file Not on file Last Filed Vital Signs Vital Sign Reading Time Taken Comments Blood Pressure 108/58 01/01/2018 8:43 AM CDT Pulse 57 01/01/2018 8:43 AM CDT Temperature 36.2 C (97.2 F) 09/30/2014 2:49 PM INSIDE SALES MANAGER Respiratory Rate 12 09/30/2014 2:49 PM INSIDE SALES MANAGER Oxygen Saturation - - Inhaled Oxygen Concentration - - Weight 87.3 kg (192 lb 8 oz) 09/30/2014 2:49 PM INSIDE SALES MANAGER Height 175.3 cm (5' 9) 09/30/2014 2:49 PM INSIDE SALES MANAGER Body Mass Index 28.43 09/30/2014 2:49 PM INSIDE SALES MANAGER Plan of Treatment Health Maintenance Due Date Last Done Comments PSA Screening Discussion 1955 Adult Preventive Visit 09/30/2015 09/30/2014, 1999 Colonoscopy 12/19/2015 12/18/2005 Cholesterol 03/11/2018 03/11/2013 (Comp leted), 07/23/2000 Pneumococcal Vaccine 50+ Yrs (3 of 3 - PCV) 01/14/2024 01/13/2019, 01/08/2018 COVID-19 Vaccine (2 - season) 2024 04/28/2021 Influenza Vaccine (Season Ended) 2025 06/28/2020, 07/01/2019, 07/02/2018, Additional history exists DTaP/Tdap/Td Vaccine (3 - Tdap) 08/06/2029 08/06/2019, 02/16/2009, 04/30/2003, Additional history exists RSV Vaccine (1 - 1-dose 75+ series) 2032 HepB Vaccine Completed 05/22/2000, 11/22, 11/08/1999 HepA Vaccine Aged Out 03/12/2013, 08/18/2012 No lo nger eligible based on patient's age to complete this topic Hep C Screening (Preventive Services) Completed 01/16/2016 Zoster/Shingles Vaccine Completed 08/17/2019, 05/21 Hib Vaccine Aged Out No longer eligi ble based on patient's age to complete this topic IPV (Polio) Vaccine Aged Out No longe r eligible based on patient's age to complete this topic MCV4 Vaccine Aged Out No longer eligi ble based on patient's age to complete this topic Meningococcal B Vaccine Aged Out No l onger eligible based on patient's age to complete this topic Procedures Procedure Name Priority Date/Time Associated Diagnosis Comments CHOLESTEROL, TOTAL AND HDL Routine 07/23/2000 10:32 AM INSIDE SALES MANAGER from Last 3 Months or Most Recently Relevant to Health Maintenance Results * CHOLESTEROL, TOTAL AND HDL (07/23/2000 10:32 AM INSIDE SALES MANAGER) Cholesterol 171 <200 mg/dl [facility] HDL 38 >35 mg/dl [facility] 07/23/2000 10:3 2 AM INSIDE SALES MANAGER 07/23/2000 10:33 AM INSIDE SALES MANAGER us Tony Jones MD LAB_[address] [facility] [facility] [id number] [id number] from Last 3 Months or Most Recently Relevant to Health Maintenance Insurance FULL[employer] INSURED [employer] Care Teams Sheet Metal Duct Worker Supervisor Relationship Specialty [place] [address] [place] [address] PCP - General 06/14/1998
--- OUTSIDE RECORDS SUMMARY | 2025-02-07 17:29 | XMS_ITS | Encounter Summary ---
Author Organization [employer] Address [address] [place] [address] Care Team Providers Care Asphalt Paving Supervisor Name Role Phone Tony Jones MD Primary Care Provider [phone] Encounter Details Date Type Department Care Team (Latest Contact Info) Description 02/15/2000 [place] [address] [place] [address] Social History Tobacco Use Types Packs/Day Years [...] on filedocumented in this encounter Care Teams Asphalt Paving Supervisor Relationship Specialty [place] [address] [place] [address] PCP - General 06/14/1998 documented as of this encounter
--- OUTSIDE RECORDS SUMMARY | 2025-02-07 17:29 | XMS_ITS | Encounter Summary ---
Author Organization [employer] Address [address] [place] [address] Care Team Providers Care Pipe Maker Name Role Phone Tony Jones MD Primary Care Provider [phone] Encounter Details Date Type Department Care Team [...] on filedocumented in this encounter Care Teams Pipe Maker Relationship Specialty [place] [address] [place] [address] PCP - General 06/14/1998 documented as of this encounter
--- OUTSIDE RECORDS SUMMARY | 2025-02-07 17:29 | XMS_ITS | Encounter Summary ---
Author Organization [employer] Address [address] [place] [address] Care Team Providers Care Road Roller Operator Hot Mix Name Role Phone Tony Jones MD Primary Care Provider [phone] Encounter Details Date Type Department Care Team (Latest Contact Info) Description 09/15/1997 Orders Only Srinivasa Knott MD [address] [place] [id number] Social History Tobacco Use Types Packs/Day Years [...] on filedocumented in this encounter Care Teams Road Roller Operator Hot Mix Relationship Specialty [place] [address] [place] [address] PCP - General 06/14/1998 documented as of this encounter
--- OUTSIDE RECORDS SUMMARY | 2025-02-07 17:29 | XMS_ITS | Encounter Summary ---
Author Organization [employer] Address [address] [place] [address] Care Team Providers Care Jig Bore Tool Maker Name Role Phone Tony Jones MD Primary Care Provider [phone] Encounter Details Date Type Department Care Team (Latest Contact Info) Description 11/30/1999 Orders Only Srinivasa Knott MD [address] [place] [id number] Social History Tobacco Use Types Packs/Day Years [...] on filedocumented in this encounter Care Teams Jig Bore Tool Maker Relationship Specialty [place] [address] [place] [address] PCP - General 06/14/1998 documented as of this encounter
--- OUTSIDE RECORDS SUMMARY | 2025-02-07 17:29 | XMS_ITS | Clinical Summary ---
Author Organization 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. For routine questions regarding patient records, call [phone] during business hours, M-F 8:00 AM - 5:00 PM Central Time. Record requests for emergency care only can be directed to [phone] at any time.[facility] Allergies Active Allergy Reactions Criticality Noted Date Comments Dextrose 5 % In Water Rash 12/18/2005 Ketorolac Hives (Reselect Reaction),Hives only, no other systemic symptoms High 09/12/2017 Ketorolac Tromethamine Hives (Reselect Reaction) 2012 Penicillins Rash Low 09/12/2017 Quinolones Hives only, no other systemic symptoms High 11/15/2023 Sulfa (Sulfonamide Antibiotics) Rash Low 09/12/2017 Successful Bactrim desensitization 3.29.19 Gatifloxacin Rash 04/30/2003 Tromethamine Rash 09/12/2017 Medications simethicone (MYLICON,GAS-X) 180 mg capsule Take 180 mg by mouth as needed for flatulence. Not often Active cetirizine (ZyrTEC) 10 mg tablet Take 1 tablet (10 mg total) by mouth daily as needed for allergies. 11/24/2024 Active ibuprofen 200 mg tablet Take 200 mg by mouth daily as needed for pain. 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 No muscle weakness noted. 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 Other Specified Conduction Disorders Discharge Disposition: Home or Self Care 12/01/2024 Results Follow-Up Department of Cardiovascular Medicine in [place], [place] [address] [place] [phone] Brenda Fowler, DorothyA.-CEmely ECG Heart rhythm monitor (Holter) 11/26/2024 10:31 AM STRATEGIC COMMUNICATIONS MANAGER - 11/26/2024 11:59 PM STRATEGIC COMMUNICATIONS MANAGER Hospital Encounter Department of Cardiovascular Diseases in [place], [place] [address] [place] [address] Brenda Fowler, P.A.-C. Incompetence Chronotropic Discharge Disposition: Home or Self Care 11/24/2024 1:00 PM STRATEGIC COMMUNICATIONS MANAGER Comprehensive Visit Department of Cardiovascular Medicine in [place], [place] [address] [place] [phone] Srinivasa Bishop M.D. Polymyositis With Respiratory Involvement (HCC); Incompetence Chronotropic 11/24/2024 8:37 AM STRATEGIC COMMUNICATIONS MANAGER - 11/24/2024 11:59 PM STRATEGIC COMMUNICATIONS MANAGER Hospital Encounter Department of Cardiovascular Diseases in [place], [place] [address] [place] [phone] Brenda Fowler P.A.-C. Bradycardia Discharge Disposition: Home or Self Care 11/24/2024 7:56 AM STRATEGIC COMMUNICATIONS MANAGER - 11/24/2024 8:36 AM STRATEGIC COMMUNICATIONS MANAGER Hospital Encounter Department of Laboratory Medicine and Pathology, [facility], in [place], [place] [address] [place] [address] Brenda Fowler P.A.-C. Bradycardia Discharge Disposition: Home or Self Care 11/24/2024 Documentation Department of Cardiovascular Diseases in [place], [place] [address] [place] [address] Gil Regalado 11/18/2024 1:40 PM STRATEGIC COMMUNICATIONS MANAGER - 11/18/2024 11:59 PM STRATEGIC COMMUNICATIONS MANAGER Hospital Encounter Department of Cardiovascular Diseases in [place], [place] [address] [place] [address] Rayna Chapin M.D. Polymyositis With Respiratory Involvement (HCC); Incompetence Chronotropic Discharge Disposition: Home or Self Care from Last 3 Months Immunizations Immunization Administration Dates Next Due HepA, Unspecified 03/12/2013,08/18/2012 HepB Adult 05/22/2000, 0,12/11/1999,1999,11/08/1999,11/08/1999 Influenza high dose QV(65 ye ars or older) (PF) 08/05/2022 Influenza, Injectable, Mdck, Preservative Free, Quadrivalent 06/28/2020 Influenza, Injectable, Quadrivalent 05/2019,07/02/2018,07/03/2017,2014 Influenza, Quadrivalent, Adj uvanted, Preservative Free 08/22/2023 Influenza, Seasonal, Injectable 07/29/20 13,07/24/2012,07/25/2011,2009 Influenza, Unspecified 07/26/2011 PCV13 01/13/2019 PPSV23 01/08/2018 RZV (SHINGRIX) 02/29/2020,08/17/2019,05/21/2019 SARS-COV-2 (COVID-19) - PFIZ ER (Discontinued)(12 years or older) 04/28/2021 Td (Adult), adsorbed 06/02/1992 Td Preservative Free (TENIVA C, DECAVAC) 04/30/2003,06/02/1992 Td, (Adult) Unspecified 04/30/2003 Tdap 08/06/2019,02/16/2009 TyVi (inj) 08/18/2012 influenza trivalent high dos e (HD)(PF) 07/01/2024 influenza trivalent vaccine (6 months and older)(PF) 07/01/2009 influenza vaccine quad (FLUZONE/FLUARIX) (6 months and older)(PF) 06/28/2020,06/30/2014 Family History Medical History Relation Name Comments alcoholism Brother 2 at 77 RA - Rheumatoid arthritis Brother 3 No Known Problems Daughter 1 No Known Problems Daughter 2 Heart failure Father at 73 from heart failure Thyroid cancer Father Dementia Mother at 76 from dementia Emphysema Mother No Known Problems Son Relation Name Status Comments Brother 1 Alive Brother 2 Brother 3 Alive Daughter 1 Alive Daughter 2 Alive Father Mother Son Alive Social History Tobacco Use Types Packs/Day Years Used Date Smoking Tobacco: Former Cigarettes 1 5.1 0 02/21/1973 - 1978 Smokeless Tobacco: Never Tobacco Cessation:Counseling Given: Not Answered Alcohol Use Standard Drinks/Week Comments Yes 2 (1 standard drink = 0.6 oz pur e alcohol) [facility] [employer] Answer Date Recorded In the past 12 months has e Walk Score, gas, oil, or water [employer] threatened to shut off services in your home? No 08/27/2024 Humiliation, Afraid, Rape, and Kick questionnair e [...] week 03/20/2022 How often do you attend chur ch or islam services? More than 4 times per year 03/20/2022 Do you belong to any clubs o r organizations such as mosque groups, unions, fraternal or athletic groups, or [...] and heating? Not hard at all 04/04/2023 [facility] - Occupational Stress [...] to strenuous exercise (like a brisk walk)? 4 days 08/27/2024 On average, how many minutes do you engage in exercise at this level? 50 min 08/27/2024 Hunger Vital Sign Answer Date Recorded Within the past 12 months, y ou worried that your food would run out before you got the money to buy more. Never true 08/27/20 24 Within the past 12 months, t he food you bought just didn't last and you didn't have money to get more. Never true 08/27/2024 PRAPARE - Transportation Answer Date Re corded In the past 12 months, has l ack of transportation kept you from medical appointments or from getting medications? No 01/2024 In the past 12 months, has l ack of transportation kept you from meetings, work, or from getting things needed for daily living? No 08/27/2024 Nutrition Answer Date Recorded On average, how many serving s of fruits and vegetables do you eat per day (serving size is equal to 1 cup or approximately the size of a tennis ball)? 0-2 08/27/2024 Dental Answer Date Recorded Dental: Regular Dentist Yes 04/04/20 Employment Answer Date Recorded Employment status Retired 08/27/2024 Housing Stability Answer Date Recorded What is your living situation today? I have a [facility] place to live 08/27/2024 Education Answer Date Recorded What is the highest level of school you have completed or the highest degree you have received? Associate degree: occupational, technical, or vocational program 06/03/2019 Sex and Gender Information Value Date Recorded Sex Assigned at Male 02/24/2018 1:11 PM CDT Legal Sex Male 11:26 AM STRATEGIC COMMUNICATIONS MANAGER Gender Identity Male 02/24/2018 1:11 PM CDT Sexual Orientation Straight 02/24/2018 1: 11 PM CDT Last Filed Vital Signs Vital Sign Reading Time Taken Comments Blood Pressure 120/79 11/24/2024 12:25 PM STRATEGIC COMMUNICATIONS MANAGER Pulse 80 11/24/2024 12:25 PM STRATEGIC COMMUNICATIONS MANAGER Temperature 36.3 C (97.3 F) 09/03/2024 3:17 PM STRATEGIC COMMUNICATIONS MANAGER Respiratory Rate 15 07/05/2022 11:4 5 AM CDT Oxygen Saturation 97% 11/24/2024 12: 25 PM STRATEGIC COMMUNICATIONS MANAGER Inhaled Oxygen Concentration - - Weight 89.2 kg (196 lb 10.4 oz) 025 12:25 PM STRATEGIC COMMUNICATIONS MANAGER Height 172.8 cm (5' 8.03) 11/24/2024 1 2:25 PM STRATEGIC COMMUNICATIONS MANAGER Body Mass Index 29.87 11/24/2024 12:25 PM STRATEGIC COMMUNICATIONS MANAGER Plan of Treatment Health Maintenance Due Date Last Done Comments Abdominal Aortic Aneurysm (AAA) Screen 1957 CT Colonography 1955 Cologuard 1955 Hepatitis C Screening 1955 RSV vaccine - (32-36 weeks) or 60+ years (1 - Risk 60-74 years 1-dose series) 2017 Colonoscopy 09/12/2021 09/12/2016 (Perf ormed elsewhere) Colorectal Cancer Surveillance 09/12/2021 Pneumococcal vaccine (50+ years) (3 of 3 - PCV20 or PCV21) 01/14/2024 01/13/2019, 01/08/2018 COVID-19 Vaccine (3 - season) 2024 05/19/2021, 04/28/2021 Depression Screening (Annual PHQ-2) 09/23/2024 Fasting Glucose for Diabetes Screening 11/25/2027 11/24/2024, 09/03/2024, 06/27/2022, Additional history exists DTaP,Tdap,and Td Vaccines (3 - Td or Tdap) 08/06/2029 08/06/2019, 02/16/2009, 04/30/2003, Additional history exists Hepatitis B Vaccines Completed 05/22/2000, 05/22/2000, 12/11/1999, Additional history exists Hepatitis A Vaccines Completed 03/12/2013, 08/18/20 12 Zoster Vaccines Completed 02/29/2020, 07/25, 05/21/2019 Influenza Vaccine Completed 07/01/2024, , 08/05/2022, Additional history exists Fall Risk Screen (Annual) Completed 11/24/2024 HPV Vaccines Aged Out No longer eligi ble based on patient's age to complete this topic IPV Vaccines Aged Out No longer eligi ble based on patient's age to complete this topic Medical Devices Implanted Type Area Band Tacker Device Identifier Shelf Expiration Date Model / Serial / Lot Mesh Or Patch Mesh or Patch Abdomen Procedures Procedure Name Priority Date/Time Associated Diagnosis Comments ECG AMBULATORY REAL TIME CARDIAC MONITORING Routine 12/08/2024 8:42 AM CDT Other Specified Conduction Disorders HOLTER MONITOR - IN CLINIC ASSEMBLER BICYCLE Routine 11/27/2024 6:31 PM STRATEGIC COMMUNICATIONS MANAGER Incompetence Chronotropic CARDIOPULMONARY (VO2) EXERCISE TEST Routine 11/24/2024 9:51 AM STRATEGIC COMMUNICATIONS MANAGER Bradycardia ECG Routine 11/24/2024 8:31 AM STRATEGIC COMMUNICATIONS MANAGER Bradycardia LIPID PANEL, S Routine 11/24/2024 8:17 AM STRATEGIC COMMUNICATIONS MANAGER Bradycardia THYROID FUNCTION CASCADE, S Routine 11/24/2024 8:17 AM STRATEGIC COMMUNICATIONS MANAGER Bradycardia BASIC METABOLIC PANEL, S/P Routine 11/24/2024 8:17 AM STRATEGIC COMMUNICATIONS MANAGER Bradycardia CBC WITHOUT DIFFERENTIAL, B Routine 11/24/2024 8:17 AM STRATEGIC COMMUNICATIONS MANAGER Bradycardia (TTE) 2D ECHO DOPPLER COLOR Routine 11/18/2024 3:08 PM STRATEGIC COMMUNICATIONS MANAGER Polymyositis With Respiratory Involvement (HCC) Incompetence Chronotropic from Last 3 Months Results * ECG AMBULATORY REAL TIME CARDIAC MONITORING (12/08/2024 8:42 AM CDT) Min Heart Rate 41 bpm INFOBIONIC MOME Max Heart Rate 132 bpm INFOBIONIC MOME Mean Heart Rate 66 bpm INFOBIONIC MOME VE Total Beats <100 count INFOBIONIC MOME VE Percent Beats 0% percent INFOBIONIC MOME SVE Total Beats 870 count INFOBIONIC MOME SVE Percent Beats <1% percent INFOBIONIC MOME Holter Pauses 0 count INFOBIONIC MOME AF Count 0 count INFOBIONIC MOME AF Duration 0 sec duration INFOBIONIC MOME AF [place] 0% percent INFOBIONIC MOME VT Runs 0 count INFOBIONIC MOME SVT Runs 3 count INFOBIONIC MOME Symptom Count 18 count INFOBIONIC MOME 12/02/2024 7:57 AM CDT Narrative INFOBIONIC MOME - 12/11/2024 8:55 AM CDT 1. The patient was monitored from 12/02/2024 to 12/08/2024 with a total monitoring time of 5 days 16 hr 7 min. The baseline rhythm was sinus. The heart rate varied from 41 bpm to 132 bpm. The average heart rate was 66 bpm. 2. There were <100 PVCs seen with a PVC burden of <1%. 3. There were 870 PACs seen singly and in pairs with a PAC burden of <1%. There were 3 runs of supraventricular tachycardia observed, at times with aberrancy. The longest duration of SVT was 11 beats. The maximum rate of SVT was 130 bpm. 4. The patient reported 18 symptomatic events of chest pain. During these events, the rhythm was sinus. The heart rate varied from 51 bpm to 113 bpm. There was no ectopy noted. School Bus Monitor: ALMAS Fernández Procedure Note Tony Espinal M.D., Ph.D. - 12/11/2024 1. The patient was monitored from 12/02/2024 to 12/08/2024 with a totalmonitoring time of 5 days 16 hr 7 min. The baseline rhythm was sinus. Theheart rate varied from 41 bpm to 132 bpm. The average heart rate was 66bpm. 2. There were <100 PVCs seen with a PVC burden of <1%. 3. There were 870 PACs seen singly and in pairs with a PAC burden of <1%.There were 3 runs of supraventricular tachycardia observed, at times withaberrancy. The longest duration of SVT was 11 beats. The maximum rate ofSVT was 130 bpm. 4. The patient reported 18 symptomatic events of chest pain. Duringthese events, the rhythm was sinus. The heart rate varied from 51 bpm to113 bpm. There was no ectopy noted. School Bus Monitor: ALMAS Fernández Brenda Fowler P.A.-C. CV CARDIAC SERVICES PROC EDURES Final Result INFOBIONIC MOME NA * HOLTER MONITOR - IN CLINIC ASSEMBLER BICYCLE (11/27/2024 6:31 PM STRATEGIC COMMUNICATIONS MANAGER) Min Heart Rate 44 bpm INFOB IONIC MOME Max Heart Rate 117 bpm INFOB IONIC MOME Mean Heart Rate 60 bpm INFOBIONIC MOME VE Total Beats 0 count INFOB IONIC MOME VE Percent Beats less than 1 percent INFOBIONIC MOME SVE Total Beats 71 count INFOBIONIC MOME SVE Percent Beats less than 1 percent INFOBIONIC MOME AF Count 0 count INFOBIONIC MOME AF Duration 0 duration INFOBION IC MOME AF [place] 0 percent INFOBIONIC MOME Symptom Count 8 count INFOBI ONIC MOME 11/26/2024 10:5 9 AM STRATEGIC COMMUNICATIONS MANAGER Narrative INFOBIONIC MOME - 12/01/2024 11:40 AM CDT 1. The basic rhythm was sinus with sinus arrhythmia. One brief episode of atrial tachycardia with variable AV conduction occurred and is included in the PAC counts. The total analyzed time was 22h 29m. The heart rate varied from 44 to 117 bpm. The average HR was 60 bpm. 2. No premature ventricular complexes were noted. 3. Premature supraventricular complexes were noted singly and in four 3-15 beat atrial runs, maximum rate of 108 bpm. There were 71 PACs recorded with a PAC burden of less than 1%. Note: One atrial run is a brief episode of atrial tachycardia with variable AV conduction. 4. A total of 8 symptomatic events were noted, which included chest pain. The basic rhythm was sinus with sinus arrhythmia. The heart rate varied from 59 to 66 bpm. A single PAC occurred at and around these times. School Bus Monitor: ALMAS Rowland / ALMAS Riley Fellow: Robert Lackey MD, MS A Holter monitor with cascade to extended monitoring was ordered for the indication of Undifferentiated syncope/spells. During the Holter monitoring period, the patient did not report syncope with associated rhythm abnormality (pause >=3 seconds, bradycardia <=30bpm for at least 30 seconds, sustained VT >=110bpm or SVT >=140bpm for >=30 beats). Therefore, the study was cascaded to extended monitoring. Procedure Note Michael Sood M.D. - 12/01/2024 1. The basic rhythm was sinus with sinus arrhythmia. One brief episode ofatrial tachycardia with variable AV conduction occurred and is included inthe PAC counts. The total analyzed time was 22h 29m. The heart rate variedfrom 44 to 117 bpm. The average HR was 60 bpm. 2. No premature ventricular complexes were noted. 3. Premature supraventricular complexes were noted singly and in four 3-15beat atrial runs, maximum rate of 108 bpm. There were 71 PACs recordedwith a PAC burden of less than 1%. Note: One atrial run is a brief episodeof atrial tachycardia with variable AV conduction. 4. A total of 8 symptomatic events were noted, which included chestpain. The basic rhythm was sinus with sinus arrhythmia. The heart ratevaried from 59 to 66 bpm. A single PAC occurred at and around thesetimes. School Bus Monitor: ALMAS Rowland / ALMAS Riley Fellow: Robert Lackey MD, MS A Holter monitor with cascade to extended monitoring was ordered for theindication of Undifferentiated syncope/spells. During the Holtermonitoring period, the patient did not report syncope with associatedrhythm abnormality (pause >=3 seconds, bradycardia <=30bpm for at least 30 seconds, sustained VT >=110bpm or SVT>=140bpm for >=30 beats). Therefore, the study was cascaded to extended monitoring. Brenda Fowler P.A.-C. CV CARDIAC SERVICES PROC EDURES Final Result Performing Organization Address City/[facility] Co de Phone Number INFOBIONIC MOME NA * CARDIOPULMONARY (VO2) EXERCISE TEST (11/24/2024 9:51 AM STRATEGIC COMMUNICATIONS MANAGER) 11/24/2024 8:37 AM STRATEGIC COMMUNICATIONS MANAGER Narrative CV MERGE - 11/24/2024 4:16 PM STRATEGIC COMMUNICATIONS MANAGER See PDF For Result Procedure Note Kyle Johnson M.D. - 11/24/2024 See PDF For Result Brenda Fowler P.A.-C. CV STRESS PROCEDURES Fin al Result Performing Organization Address [facility] Co de Phone Number CV MERGE NA * ECG 12 Lead (11/24/2024 8:31 AM STRATEGIC COMMUNICATIONS MANAGER) Ventricular Rate ECG/Min 51 BPM MUSE [place] Interval 182 ms MUSE QRSD Interval 88 ms MUSE QT Interval 424 ms MUSE QTC Interval 390 ms MUSE P [place] 46 degrees MUSE R [place] 7 degrees MUSE T Wave [place] 13 degrees MUSE 11/24/2024 8:31 AM STRATEGIC COMMUNICATIONS MANAGER 11/24/2024 8:56 AM STRATEGIC COMMUNICATIONS MANAGER Impressions MUSE - 11/24/2024 8:56 AM STRATEGIC COMMUNICATIONS MANAGER Sinus bradycardia Otherwise normal ECG When compared with ECG of 27-Jun-2022 10:20, No significant change was found Reviewed by ALMAS Dior Narrative Procedure Note Taurus Pizano Jr., M.D. - 11/24/2024 IMPRESSION: Sinus bradycardia Otherwise normal ECG When compared with ECG of 27-Jun-2022 10:20, No significant change was found Reviewed by ALMAS Dior us Brenda Fowler P.A.-C. ECG ORDERABLES Final Re sult MUSE NA * Lipid Panel (11/24/2024 8:17 AM STRATEGIC COMMUNICATIONS MANAGER) Triglycerides 117 mg/dL 11/24/2024 9:53 AM STRATEGIC COMMUNICATIONS MANAGER DTL Comment: ----REFERENCE VALUE---- Normal: <150 mg/dL Borderline High: 150-199 mg/dL High: 200-499 mg/dL Very High: > or =500 mg/dL Cholesterol, Total 162 mg/dL 2024 9:53 AM STRATEGIC COMMUNICATIONS MANAGER DTL Comment: ----REFERENCE VALUE---- Desirable: < 200 mg/dL Borderline High: 200 - 239 mg/dL High: > or = 240 mg/dL Cholesterol, LDL, Calculated 98 mg/dL 11/24/2024 9:53 AM STRATEGIC COMMUNICATIONS MANAGER DTL Comment: ----REFERENCE VALUE---- Desirable: <100 mg/dL Above Desirable: 100-129 mg/dL Borderline High: 130-159 mg/dL High: 160-189 mg/dL Very High: >=190 mg/dL ----ADDITIONAL INFORMATION---- LDL cholesterol calculated using the Walden/NIH equation. Cholesterol, HDL, S 43 >=40 mg/dL 11/24/2024 9:53 AM STRATEGIC COMMUNICATIONS MANAGER DTL Cholesterol, Non-HDL, Calculated 119 mg/dL 11/24/2024 9:53 AM STRATEGIC COMMUNICATIONS MANAGER DTL Comment: ----REFERENCE VALUE---- Desirable: <130 mg/dL Above Desirable: 130-159 mg/dL Borderline High: 160-189 mg/dL High: 190-219 mg/dL Very High: > or =220 mg/dL Fasting (8 HR or more) Yes 11/24/2024 8:17 AM STRATEGIC COMMUNICATIONS MANAGER DTL Blood (Blood, Venous) 11/24/2024 8:17 AM STRATEGIC COMMUNICATIONS MANAGER 11/24/2024 8:54 AM STRATEGIC COMMUNICATIONS MANAGER Brenda Fowler P.A.-C. LAB [place]LOOD [place] [address] * Thyroid Function Hitchcock (11/24/2024 8:17 AM STRATEGIC COMMUNICATIONS MANAGER) Pathologist [facility] TSH, Sensitive 2.4 0.3 - 4.2 mIU/L 11/24/2024 9:53 AM STRATEGIC COMMUNICATIONS MANAGER DTL Blood (Blood, Venous) 11/24/2024 8:17 AM STRATEGIC COMMUNICATIONS MANAGER 11/24/2024 8:54 AM STRATEGIC COMMUNICATIONS MANAGER Brenda Fowler P.A.-C. LAB BLOOD ADD-ON Final R Viddyadult [facility] [address] [place] [address], [place] [address] * CBC without Differential (11/24/2024 8:17 AM STRATEGIC COMMUNICATIONS MANAGER) Hemoglobin 15.6 13.2 - 16.6 g/dL 11/24/2024 9:06 AM STRATEGIC COMMUNICATIONS MANAGER DTL Hematocrit 44.4 38.3 - 48.6 % 11/24/2024 9:06 AM STRATEGIC COMMUNICATIONS MANAGER DTL Erythrocytes 5.16 4.35 - 5.65 x10(12)/L 11/24/2024 9:06 AM STRATEGIC COMMUNICATIONS MANAGER DTL MCV 86.0 78.2 - 97.9 fL 11/24/2024 9:06 AM STRATEGIC COMMUNICATIONS MANAGER DTL RBC Distrib Width 13.7 11.8 - 14.5 % 11/24/2024 9:06 AM STRATEGIC COMMUNICATIONS MANAGER DTL Platelet Count 190 135 - 317 x10(9)/L 11/24/2024 9:06 AM STRATEGIC COMMUNICATIONS MANAGER DTL Leukocytes 6.1 3.4 - 9.6 x10(9)/L 11/24/2024 9:06 AM STRATEGIC COMMUNICATIONS MANAGER DTL Blood (Blood, Venous) 11/24/2024 8:17 AM STRATEGIC COMMUNICATIONS MANAGER 11/24/2024 8:42 AM STRATEGIC COMMUNICATIONS MANAGER us Brenda Fowler P.A.-C. LAB BLOOD [place] [address], [facility] [address] [place] [address] * (ABNORMAL) Basic Metabolic Panel (11/24/2024 8:17 AM STRATEGIC COMMUNICATIONS MANAGER) Pathologist [facility] Potassium, S 5.2 3.6 - 5.2 mmol/L 11/24/2024 9:53 AM STRATEGIC COMMUNICATIONS MANAGER DTL Sodium, S 144 135 - 145 mmol/L 11/24/2024 9:53 AM STRATEGIC COMMUNICATIONS MANAGER DTL Chloride, S 109(H) 98 - 107 mmol/L 11/24/2024 9:53 AM STRATEGIC COMMUNICATIONS MANAGER DTL Bicarbonate, S 25 22 - 29 mmol/L 11/24/2024 9:53 AM STRATEGIC COMMUNICATIONS MANAGER DTL Anion Gap 10 7 - 15 11/24/2024 9:53 AM STRATEGIC COMMUNICATIONS MANAGER DTL BUN (Blood Urea Nitrogen), S 17 8 - 24 mg/dL 11/24/2024 9:53 AM STRATEGIC COMMUNICATIONS MANAGER DTL Creatinine 1.31 0.74 - 1.35 mg/dL 11/24/2024 9:53 AM STRATEGIC COMMUNICATIONS MANAGER DTL Estimated GFR (eGFR) 60 >=60 mL/min/BSA 11/24/2024 9:53 AM STRATEGIC COMMUNICATIONS MANAGER DTL Comment: Estimated GFR calculated using the 2021 CKD_EPI creatinine equation. Calcium, Total, S 9.0 8.8 - 10.2 mg/dL 11/24/2024 9:53 AM STRATEGIC COMMUNICATIONS MANAGER DTL Glucose, S 107 70 - 140 mg/dL 11/24/2024 9:53 AM STRATEGIC COMMUNICATIONS MANAGER DTL Blood (Blood, Venous) 11/24/2024 8:17 AM STRATEGIC COMMUNICATIONS MANAGER 11/24/2024 8:54 AM STRATEGIC COMMUNICATIONS MANAGER us Brenda Fowler P.A.-C. LAB BLOOD ADD-ON Final R esult [facility] [address] [place] [address], [facility] [address] [place] [address] * (TTE) 2D ECHO DOPPLER COLOR (11/18/2024 3:08 PM STRATEGIC COMMUNICATIONS MANAGER) Ejection Fraction 62 MC CV EIMS Sinus of Valsalva 40 MC CV EIMS Mid-Ascending Aorta 38 MC CV EIMS LV Mass Index 60 MC CV EIMS LV End-Diastolic Diameter 50 MC CV EIMS LV End-Systolic Diameter 31 MC CV EIMS LV End-Diastolic Volume 109 MC CV EIMS LV End-Systolic Volume 41 MC CV EIMS MV E Velocity 0.5 MC CV EIMS MV A Velocity 0.6 MC CV EIMS MV E/A 0.83 MC CV EIMS MV e' Velocity Medial 0.09 MC CV EIMS MV e' Velocity Lateral 0.11 MC CV EIMS MV E/e' Medial 5.6 MC CV EIMS MV E/e' Lateral 4.5 MC CV EIMS Left ventricular stroke volume index 48 MC CV EIMS Cardiac Output 6.33 MC CV EIMS Cardiac Index 3.05 MC CV EIMS LV Interventricular Septal Wall Thickness 8 MC CV EIMS LV Posterior Wall Thickness 7 MC CV EIMS LV Relative Wall Thickness 28 MC CV EIMS RV 4-Chamber Basal Diameter 46 MC CV EIMS RV 4-Chamber Mid Diameter 34 MC CV EIMS RV 4-Chamber Length 66 MC CV EIMS TAPSE 28 MC CV EIMS Tricuspid Annular S 0.19 MC CV EIMS TR Vmax 2.06 MC CV EIMS Estimated RA Pressure (Echo RAP) 5 MC CV EIMS RV Systolic Pressure (with Echo RAP) 22 MC CV EIMS AV mean gradient 4 MC CV EIMS Aortic valve area 3.74 MC CV EIMS Aortic Valve Dimensionless Index 0.9 MC CV EIMS LA Volume Index 25 MC CV EIMS Aortic Valve Systolic Peak Velocity 1.5 MC CV EIMS Anatomical Region Laterality Modality Echocardiography 11/18/2024 1:51 PM STRATEGIC COMMUNICATIONS MANAGER Impressions 11/18/2024 3:12 PM STRATEGIC COMMUNICATIONS MANAGER LEFT VENTRICLE:Normal left ventricular chamber size. Normal left ventricular geometry. Calculated 2-D biplane volumetric left ventricular ejection fraction of 62%. No regional wall motion abnormalities. Grade 1/3 left ventricular diastolic dysfunction, consistent with low to normal left ventricular filling pressure at rest. RIGHT VENTRICLE:Normal right ventricular chamber size. Normal right ventricular systolic function. Estimated right ventricular systolic pressure 22 mmHg (right atrial pressure of 5 mmHg). ATRIA:Normal left atrial size. Left atrial volume index 25 ml/m2. Strain imaging examination performed to assess left atrial function. Global averaged left atrial biplane longitudinal peak systolic strain is borderline at 31.0% (normal is greater than 35%). Mildly enlarged right atrial size. CARDIAC VALVES:Trileaflet aortic valve. Normal aortic valve. Trivial aortic valve regurgitation. Normal mitral valve. Trivial mitral valve regurgitation. Normal pulmonary valve. Normal pulmonary valve systolic velocities. Trivial pulmonary valve regurgitation. Normal tricuspid valve. Trivial tricuspid valve regurgitation. OTHER ECHO FINDINGS:Normal inferior vena cava size with normal inspiratory collapse (>50%). Normal sinus of Valsalva diameter of 40 mm. Normal mid ascending aorta diameter of 38 mm. No abdominal aortic aneurysm visualized. Normal abdominal aorta Doppler flow pattern. No atrial level shunt by color flow imaging. No intracardiac mass or thrombus, but the left atrial appendage cannot be visualized adequately with transthoracic echo to exclude thrombus in this location. No pericardial effusion. For the complete report, see the Order-Level Documents. Narrative 11/18/2024 3:12 PM STRATEGIC COMMUNICATIONS MANAGER For the complete report, see the Order-Level Documents. Hemodynamics Heart Rate: 60 BPM Blood Pressure: 143 / 83 mmHg ECG: Sinus rhythm Final Impressions 1. Normal left ventricular chamber size, no regional wall motion abnormalities, calculated 2-D biplane volumetric ejection fraction of 62%. 2. Normal left ventricular geometry, grade 1/3 diastolic dysfunction, consistent with low to normal filling pressure at rest. 3. Normal right ventricular chamber size, normal systolic function, estimated right ventricular systolic pressure 22 mmHg (right atrial pressure of 5 mmHg). 4. No significant valvular heart disease. 5. No pericardial effusion. Procedure Note Venita Hawthorne M.D. - 11/18/2024 For the complete report, see the Order-Level Documents. Hemodynamics Heart Rate: 60 BPM Blood Pressure: 143 / 83 mmHg ECG: Sinus rhythm Final Impressions 1. Normal left ventricular chamber size, no regional wall motionabnormalities, calculated 2-D biplane volumetric ejection fraction of62%. 2. Normal left ventricular geometry, grade 1/3 diastolic dysfunction,consistent with low to normal filling pressure at rest. 3. Normal right ventricular chamber size, normal systolic function,estimated right ventricular systolic pressure 22 mmHg (right atrialpressure of 5 mmHg). 4. No significant valvular heart disease. 5. No pericardial effusion. Findings LEFT VENTRICLE:Normal left ventricular chamber size. Normal leftventricular geometry. Calculated 2-D biplane volumetric left ventricularejection fraction of 62%. No regional wall motion abnormalities. Grade 1/3left ventricular diastolic dysfunction, consistent with low to normal leftventricular filling pressure at rest. RIGHT VENTRICLE:Normal right ventricular chamber size. Normal rightventricular systolic function. Estimated right ventricular systolicpressure 22 mmHg (right atrial pressure of 5 mmHg). ATRIA:Normal left atrial size. Left atrial volume index 25 ml/m2. Strainimaging examination performed to assess left atrial function. Globalaveraged left atrial biplane longitudinal peak systolic strain isborderline at 31.0% (normal is greater than 35%). Mildly enlarged rightatrial size. CARDIAC VALVES:Trileaflet aortic valve. Normal aortic valve. Trivialaortic valve regurgitation. Normal mitral valve. Trivial mitral valveregurgitation. Normal pulmonary valve. Normal pulmonary valve systolicvelocities. Trivial pulmonary valve regurgitation. Normal tricuspid valve.Trivial tricuspid valve regurgitation. OTHER ECHO FINDINGS:Normal inferior vena cava size with normal inspiratorycollapse (>50%). Normal sinus of Valsalva diameter of 40 mm. Normal midascending aorta diameter of 38 mm. No abdominal aortic aneurysmvisualized. Normal abdominal aorta Doppler flow pattern. No atrial levelshunt by color flow imaging. No intracardiac mass or thrombus, but theleft atrial appendage cannot be visualized adequately with transthoracicecho to exclude thrombus in this location. No pericardial effusion. For the complete report, see the Order-Level Documents. us Rayna Chapin M.D. CV ECHO PROCEDURES Final Result from Last 3 Months Insurance [facility] Advance Directives For more information, please contact: [phone] * Full Code (Latest Code Status on File) Date Activated Date Inactivated Comments 04/08/2018 10:48 AM 04/09/2018 1:29 PM Question Answer Comments Full Code: Discussed * Full Code Date Activated Date Inactivated Comments 04/08/2018 5:46 AM 04/08/2018 10:48 AM Question Answer Comments Full Code: Discussed Care Teams Oil Processing Technician Relationship Specialty Start Date End Date Elsewhere, Pcp PCP - General Internal Medicine 03/21/22
--- OUTSIDE RECORDS SUMMARY | 2025-02-07 17:29 | XMS_ITS | Encounter Summary ---
Author Organization [facility] Address [address] [place] [address] Care Team Providers Care Factory Assembler Name Role Phone Elsewhere, Pcp Primary Care Provider Unavailabl e Encounter Details Date Type Department Care Team (Latest Contact Info) Description 10/21/2018 Community Orders [facility] LUNG AND SLEEP [facility] [address] [place] [address] Chemo Jarvis M.D. [address] [facility] [address] [place] [address] Lung Interstitial Disease (HCC) (Primary [...] PM CDT Legal Sex Male 11:26 AM INFORMATION SYSTEMS ADMINISTRATOR Gender Identity Male 02/24/2018 1:11 PM CDT [...] documented as of this encounter Care Teams Factory Assembler Relationship Specialty Start Date End Date Elsewhere, Pcp PCP - General Internal Medicine 03/21/22 documented as of this encounter
--- OUTSIDE RECORDS SUMMARY | 2025-02-07 17:29 | XMS_ITS | Encounter Summary ---
Author Organization [facility] [employer] [employer] [facility] [employer] Address [address] [place] [address] Care Team Providers Care Forensics Analyst Name Role Phone Tony Jones MD Primary Care Provider [phone] Encounter Details Date Type Department Care Team (Latest Contact Info) Description 10/22/1994 [place] [address] [place] [address] Social History Tobacco Use Types Packs/Day Years [...] on filedocumented in this encounter Care Teams Forensics Analyst Relationship Specialty [place] [address] [place] [address] PCP - General 06/14/1998 documented as of this encounter
--- OUTSIDE RECORDS SUMMARY | 2025-02-07 17:29 | XMS_ITS | Encounter Summary ---
Author Organization [employer] Address [address] [place] [address] Care Team Providers Care Aquatic Laborer Name Role Phone Tony Jones MD Primary Care Provider [phone] Encounter Details Date Type Department Care Team (Latest Contact Info) Description 01/02/2000 Orders Only Srinivasa Knott MD [address] [place] [address] Social History Tobacco Use Types Packs/Day Years [...] on filedocumented in this encounter Care Teams Aquatic Laborer Relationship Specialty [place] [address] [place] [address] PCP - General 06/14/1998 documented as of this encounter
--- OUTSIDE RECORDS SUMMARY | 2025-02-07 17:30 | XMS_ITS | Encounter Summary ---
Author Organization [employer] Address [address] [place] [address] Care Team Providers Care Stick Welder Name Role Phone Tony Jones MD Primary Care Provider [phone] Encounter Details Date Type Department Care Team (Latest Contact Info) Description 07/12/1998 [place] [address] [place] [address] Social History Tobacco Use Types Packs/Day Years [...] on filedocumented in this encounter Care Teams Stick Welder Relationship Specialty [place] [address] [place] [address] PCP - General 06/14/1998 documented as of this encounter
--- OUTSIDE RECORDS SUMMARY | 2025-02-07 17:30 | XMS_ITS | Encounter Summary ---
Author Organization [employer] [facility] Address [address] [place] [address] Care Team Providers Care Online Journalist Name Role Phone Tony Jones MD Primary Care Provider [phone] Encounter Details Date Type Department Care Team (Latest Contact Info) Description 07/14/1998 Orders Only Srinivasa Knott MD [address] [place] [address] Social History Tobacco Use Types Packs/Day Years [...] on filedocumented in this encounter Care Teams Online Journalist Relationship Specialty [place] [address] [place] [address] PCP - General 06/14/1998 documented as of this encounter
--- OUTSIDE RECORDS SUMMARY | 2025-02-07 17:30 | XMS_ITS | Encounter Summary ---
Author Organization [employer] Address [address] [place] [address] Care Team Providers Care Sexer Name Role Phone Tony Jones MD Primary Care Provider Encounter Details Date Type Department Care Team (Latest Contact Info) Description 02/05/1996 [place] [address] [place] [address] Social History Tobacco Use Types Packs/Day Years [...] on filedocumented in this encounter Care Teams Sexer Relationship Specialty [place] [address] [place] [address] PCP - General 06/14/1998 documented as of this encounter
--- OUTSIDE RECORDS SUMMARY | 2025-02-07 17:30 | XMS_ITS | Encounter Summary ---
Author Organization [employer] Address [address] [place] [address] Care Team Providers Care System Engineer Name Role Phone Tony Jones MD Primary Care Provider [phone] Encounter Details Date Type Department Care Team (Latest Contact Info) Description 12/28/1994 [place] [address] [place] [address] Social History Tobacco Use Types Packs/Day Years [...] on filedocumented in this encounter Care Teams System Engineer Relationship Specialty [place] [address] [place] [address] PCP - General 06/14/1998 documented as of this encounter
--- OUTSIDE RECORDS SUMMARY | 2025-02-07 17:30 | XMS_ITS | Encounter Summary ---
Author Organization [employer] Address [address] [place] [address] Care Team Providers Care Corporate Auditor Name Role Phone Tony Jones MD Primary Care Provider [phone] Encounter Details Date Type Department Care Team (Latest Contact Info) Description 03/02/1998 [place] [address] [place] [address] Social History Tobacco Use Types Packs/Day Years [...] on filedocumented in this encounter Care Teams Corporate Auditor Relationship Specialty [place] [address] [place] [address] PCP - General 06/14/1998 documented as of this encounter
--- OUTSIDE RECORDS SUMMARY | 2025-02-07 17:30 | XMS_ITS | Encounter Summary ---
Author Organization [employer] Address [address] [place] [address] Care Team Providers Care Gaming Surveillance Observer Name Role Phone Tony Jones MD Primary Care Provider Encounter Details Date Type Department Care Team (Latest Contact Info) Description 05/10/1998 Orders Only Brad, Vernon Arredondo MD Social History Tobacco Use Types Packs/Day Years [...] on filedocumented in this encounter Care Teams Gaming Surveillance Observer Relationship Specialty [place] [address] [place] [address] PCP - General 06/14/1998 documented as of this encounter
--- OUTSIDE RECORDS SUMMARY | 2025-02-07 17:35 | XMS_ITS | Encounter Summary ---
Author Organization [facility] Address [address] [place] [address] Care Team Providers Care Sdv Pilot/Navigator/Dds Operator Name Role Phone Tony Jones MD Primary Care Provider [phone] Encounter Details Date Type Department Care Team (Latest Contact Info) Description 09/27/1997 Orders Only Srinivasa Knott MD [address] [place] [address] Social History Tobacco Use Types Packs/Day Years [...] on filedocumented in this encounter Care Teams Sdv Pilot/Navigator/Dds Operator Relationship Specialty [place] [address] [place] [address] PCP - General 06/14/1998 documented as of this encounter
--- OUTSIDE RECORDS SUMMARY | 2025-02-07 17:35 | XMS_ITS | Encounter Summary ---
Author Organization [employer] [employer] Address [address] [place] [address] Care Team Providers Care Gift Shop Clerk Name Role Phone Tony Jones MD Primary Care Provider [phone] Encounter Details Date Type Department Care Team [...] on filedocumented in this encounter Care Teams Gift Shop Clerk Relationship Specialty [place] [address] [place] [address] PCP - General 06/14/1998 documented as of this encounter
== END 2025-02-06 17:21 | disposition home or self-care (01) ==
PROVIDERS: Emergency Provider Emergency Medicine; PCP Family Medicine
DX: S01.112A Laceration without foreign body of left eyelid and periocular area, initial encounter (principal); S06.0X0A Concussion without loss of consciousness, initial encounter; W22.8XXA Striking against or struck by other objects, initial encounter; Y93.H2 Activity, gardening and landscaping
CPT/HCPCS: 12013; 70450; 70486; 72125; 99283; 99284

== ENCOUNTER 2025-05-12 07:51 | Outpatient (CLI) | payer MEDICARE, SELFPAY | END 2025-05-12 07:52 | disposition home or self-care (01) | LOC: NFLDREF 05-17 14:21 | PROVIDERS: PCP Family Medicine; Referring Provider Family Medicine; Visit Provider Family Medicine | DX: E78.5 Hyperlipidemia, unspecified (principal); R73.01 Impaired fasting glucose; R53.83 Other fatigue; N40.0 Benign prostatic hyperplasia without lower urinary tract symptoms; Z12.5 Encounter for screening for malignant neoplasm of prostate | CPT/HCPCS: 80053; 80061; G0103 ==